=== PATIENT | male | born 1955 | race African-American/Black ===

== ENCOUNTER → 2020-11-18 13:28 | Outpatient (BNVA) | payer MEDICARE, SELFPAY | PROVIDERS: PCP Internal Medicine; Visit Provider Urology | DX: Z13.89 Encounter for screening for other disorder (principal) | CPT/HCPCS: Q3014 ==

== ENCOUNTER → 2021-05-11 14:05 | Outpatient (BNVA) | payer MEDICARE, SELFPAY | PROVIDERS: PCP Internal Medicine; Visit Provider Urology | CPT/HCPCS: Q3014 ==

== ENCOUNTER 2021-08-02 10:49 | Outpatient (REF) | payer MEDICARE, SELFPAY ==
[2021-08-02 14:48] LABS: Prostate Specific Antigen 0.06 ng/mL (<0.05-4.0)
== END 2021-08-02 10:50 | disposition home or self-care (01) ==
LOC: HO.10HDL 10:49
PROVIDERS: Visit Provider Urology
DX: C61 Malignant neoplasm of prostate (principal); N40.1 Benign prostatic hyperplasia with lower urinary tract symptoms; R32 Unspecified urinary incontinence; N13.8 Other obstructive and reflux uropathy; N30.41 Irradiation cystitis with hematuria; R31.0 Gross hematuria
CPT/HCPCS: 36415; 52000; 84153; 99212

== ENCOUNTER → 2022-09-07 13:35 | Outpatient (BNVA) | payer MEDICARE, SELFPAY | PROVIDERS: Visit Provider Urology | DX: N30.40 Irradiation cystitis without hematuria (principal); N52.9 Male erectile dysfunction, unspecified; C61 Malignant neoplasm of prostate; R39.15 Urgency of urination | CPT/HCPCS: 99212 ==

== ENCOUNTER → 2022-11-07 12:52 | Outpatient (BNVA) | payer MEDICARE, SELFPAY | PROVIDERS: PCP Internal Medicine; Visit Provider Urology | DX: C61 Malignant neoplasm of prostate (principal); R97.21 Rising PSA following treatment for malignant neoplasm of prostate | CPT/HCPCS: Q3014 ==

== ENCOUNTER 2023-05-10 14:58 | Outpatient (AMB) | payer MEDICARE, SELFPAY ==
--- NOTE | 2023-05-10 15:00 | MHC.OFFVIS ---
Intake Intake Visit Reasons: 6M PSA(psa?) Intake Note: Patient is present for Follow Up PSA Urology Med: Oxybutynin, Pentoxifylline, Sildenafil Antibiotic Allergy: None Blood Thinner: None Pharmacy: [facility] Allergies No Known Allergies Allergy (Verified 05/10/23 15:02) Medication List - Last Reconciled 05/10/23 by Seth Merritt MD albuterol sulfate 90 mcg/actuation (Ventolin HFA) 2 puffs inhalation Q6H PRN amlodipine 10 mg PO DAILY calcitriol 0.25 mcg PO Q OTHER DAY fluticasone furoate-vilanterol 100-25 mcg/dose ea inhalation fsmxaxozxay-cwwnsnvux-svinpopf 100-62.5-25 mcg ea inhalation ipenqohttlw-ekifyfncy-ghuhmyzp 200-62.5-25 mcg (Trelegy Ellipta) 1 ea PO DAILY gabapentin 300 mg PO BEDTIME 90 days hydrochlorothiazide 12.5 mg PO DAILY ipratropium-albuterol 20-100 mcg/actuation 1 puff PO QID PRN losartan 100 mg PO DAILY losartan 50 mg PO DAILY nicotine 0 inhalations inhalation oxybutynin chloride 5 mg PO BEDTIME PRN 30 days pentoxifylline ER 400 mg PO BID 90 days sildenafil 100 mg PO DAILY PRN 30 days vitamin E 670 mg PO DAILY 90 days HPI HPI Comments History of Present Illness Details Favian is a very pleasant male. He is a patient of Dr. Wilburn. He seen for the following urologic conditions - prostate cancer - radiation cystitis - with hematuria - erectile dysfunction Nighttime episodes of leakage Trial Advil p.m. Daytime episodes of hematuria Trial TXA Daytime leakage Trial Dribblestop. Erectile dysfunction Able to obtain but not maintain erection Failed daily tadalafil Does have some partial response to Viagra Prostate cancer initial low-grade 2010 RALP , recurrence 2016 with radiation Prostate cancer was diagnosed [address] Venegas. Diagnosis was reached by needle biopsy, for elevated PSA. The Dimitris grade is 3+3 = 6. TNM Classification of Malignant Tumours (TNM) T1c. The D'Maryann (NCCN) risk category is Low Risk (PSA< 10, Gl < 7, T1c). Initial therapy included Primary treatment 2009 , Prostatectomy (RRP/Robotic) with [facility] - Gl 3+4, N0, M0 , Additional treatment, Observation , Additional treatment, External Beam Radiation 2016. Recent labs included a PSA (prostate-specific antigen) 14 0.2, 2014 0.3, 2015 0.4, 2016 0.5, 05/23 0.4, 11/24 0.3, 03/24 0.4, 06/24 0.4, 12/23 0.1, 04/24 < 0.1, 08/25 < 0.1 T 690, 10/27 <0.1, 04/26 <0.1, 08/28 0.2, 05/29 0.2 Recent imaging included 11/23 , a CT (computed tomography) scan, with no evidence of metastasis Associated conditions erectile dysfunction Yes Painful ejaculation responds to NSAIDs hematuria No hot flashes No incontinence Yes Stress incontinence with cough, laugh, sneeze, requires pad protection 11/24 - discussed sling Radiation cystitis Hematuria July 202107/27 Cystoscopy July 2021 radiation cystitis Imaging 08/27 CT cystitis [facility] Medical History COPD (chronic obstructive pulmonary disease) Other chronic pain Painful ejaculation Pelvic pain Prostate cancer Rising PSA following treatment for malignant neoplasm of prostate Surgical History History of prostatectomy Social History Household Members: None Review of Systems Const Denies chills and Denies fever(s) Card Reports no additional complaints and Denies syncope Resp Denies cough GI Denies abdominal pain and Denies heartburn Reports as per HPI and Denies change in libido Neuro Denies syncope Psych Denies change in libido Endo Denies change in libido Physical Exam Const General: cooperative, healthy appearing, comfortable and no acute distress Orientation/consciousness: patient oriented x3 HEENT Face and sinus: Yes normal facial exam Mouth: moist mucous membranes Neck Neck: Yes normal visual inspection, Yes full ROM and Yes trachea midline Chest Chest palpation & inspection: normal inspection of the chest Resp Effort & Inspection: normal respiratory effort, able to speak in complete sentences and no respiratory distress GI Inspection: Yes normal to inspection Back/Spine/Pelvis Cervical Spine: normal cervical lordosis Thoracic/Lumbar Spine: thoracic and lumbar spine normal to inspection Skin General skin exam: no rashes or lesions noted Neuro General: patient oriented x3, gait normal, tone normal and moves all extremities Extrem General: Yes normal to inspection and Yes capillary refill normal Assessment & Plan Assessment & Plan (1) Rising PSA following treatment for malignant neoplasm of prostate: Code(s): R97.21 - Rising PSA following treatment for malignant neoplasm of prostate (2) Radiation cystitis: Code(s): N30.40 - 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 (3) Urinary urgency: Code(s): R39.15 - Urgency of urination (4) Prostate cancer: Comment: Prostatectomy 2013, external beam radiation 2019 Code(s): C61 - Malignant neoplasm of prostate Plan Six month follow-up PSA Orders: Orders Prostate Specific Antigen 6 Months C61 - Malignant neoplasm of prostate Medications: New tranexamic acid Use for 2-3 days when have episodes of hematuria 650 mg PO BID 5 days 10 tabs 0RF N30.01 - Acute cystitis with hematuria, N30.40 - 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 Patient Instructions: Imaging studies, laboratory and physical exam results were discussed and reviewed in detail. No major barriers to patient understanding were identified. An opportunity to ask questions regarding the treatment plan was provided. All questions were answered. The patient expressed understanding and agreement with the above treatment plan. The patient is aware they should contact our office by phone for worsening of their current condition or the appearance of new urologic symptoms. Compliance is encouraged with any medications and followup testing that is ordered. It is a privilege to participate in the urologic care of your patient. If you have any questions or concerns regarding treatment for the above conditions, or other urologic issues, please do not hesitate to contact me. The office telephone contact is [phone]. This note is constructed using voice recognition software. While every effort has been made to ensure accuracy websphere commerce architect errors may have been included. Yours sincerely, Dr Seth Merritt MD, [facility] - Urology Providers of Expert, Compassionate Care for the Genitourinary System Coding Level of Care Code Est Pt Level 4 (51407) Diagnoses Rising PSA following treatment for malignant neoplasm of prostate R97.21 Radiation cystitis N30.40 Urinary urgency R39.15 Prostate cancer C61
== END 2023-05-10 15:24 | disposition home or self-care (01) ==
LOC: HO.HUSH 14:58
PROVIDERS: PCP Internal Medicine; Visit Provider Urology
DX: R97.21 Rising PSA following treatment for malignant neoplasm of prostate (principal); Z85.46 Personal history of malignant neoplasm of prostate; N30.40 Irradiation cystitis without hematuria; R39.15 Urgency of urination
CPT/HCPCS: 99214

== ENCOUNTER → 2023-05-10 14:58 | Outpatient (BNVA) | payer MEDICARE, SELFPAY | PROVIDERS: PCP Internal Medicine; Visit Provider Urology | DX: R97.21 Rising PSA following treatment for malignant neoplasm of prostate (principal); R39.15 Urgency of urination; C61 Malignant neoplasm of prostate; N30.40 Irradiation cystitis without hematuria | CPT/HCPCS: 99212 ==

== ENCOUNTER 2023-09-20 14:40 | Outpatient (AMB) | payer MEDICARE, SELFPAY ==
--- NOTE | 2023-09-20 15:05 | A.OFFVIS_ITS ---
Intake Intake Visit Reasons: 6m/PSA Intake Note: Patient is Present for Follow Up PVR Urology Medication: Oxybutynin, Sildenafil Antibiotic Allergies: None Blood Thinners: None PVR: 0 Allergies No Known Allergies Allergy (Verified 05/10/23 15:02) HPI HPI Comments History of Present Illness Details Favian is a very pleasant male. He is a patient of Dr. Wilburn. He seen for the following urologic conditions - prostate cancer - radiation cystitis - with hematuria - erectile dysfunction Occasional episodes of hematuria No time episode nocturia Previous discussion regarding dribblestop Has stress incontinence Retry combination daily tadalafil and pentoxifylline Three month follow-up Erectile dysfunction Able to obtain but not maintain erection Failed daily tadalafil Does have some partial response to Viagra Prostate cancer initial low-grade 2009 RALP , recurrence 2016 with radiation Prostate cancer was diagnosed [address] Venegas. Diagnosis was reached by needle biopsy, for elevated PSA. The [place] grade is 3+3 = 6. TNM Classification of Malignant Tumours (TNM) T1c. The D'Maryann (NCCN) risk category is Low Risk (PSA< 10, Gl < 7, T1c). Initial therapy included Primary treatment 2009 , Prostatectomy (RRP/Robotic) with [facility] - Gl 3+4, N0, M0 , Additional treatment, Observation , Additional treatment, External Beam Radiation 2016 Recent labs included a PSA (prostate-specific antigen) 14 0.2, 2014 0.3, 2015 0.4, 2016 0.5, 05/23 0.4, 11/24 0.3, 03/24 0.4, 06/24 0.4, 12/23 0.1, 04/24 < 0.1, 08/25 < 0.1 T 690, 10/27 <0.1, 04/26 <0.1, 08/28 0.2, 05/29 0.2 Recent imaging included 11/23 , a CT (computed tomography) scan, with no evidence of metastasis Associated conditions Stress incontinence with cough, laugh, sneeze, requires pad protection 11/24 - discussed sling Radiation cystitis Hematuria July 202107/27 Cystoscopy July 2021 radiation cystitis Imaging 08/27 CT cystitis [facility] Medical History COPD (chronic obstructive pulmonary disease) Other chronic pain Pelvic pain Painful ejaculation Rising PSA following treatment for malignant neoplasm of prostate Prostate cancer Surgical History History of prostatectomy Social History Household Members: None Review of Systems Const Denies chills and Denies fever(s) Card Reports no additional complaints and Denies syncope Resp Denies cough GI Denies abdominal pain and Denies heartburn Reports as per HPI and Denies change in libido Neuro Denies syncope Psych Denies change in libido Endo Denies change in libido Physical Exam Const General: cooperative, healthy appearing, comfortable and no acute distress Orientation/consciousness: patient oriented x3 HEENT Face and sinus: Yes normal facial exam Mouth: moist mucous membranes Neck Neck: Yes normal visual inspection, Yes full ROM and Yes trachea midline Chest Chest palpation & inspection: normal inspection of the chest Resp Effort & Inspection: normal respiratory effort, able to speak in complete sentences and no respiratory distress GI Inspection: Yes normal to inspection Back/Spine/Pelvis Cervical Spine: normal cervical lordosis Thoracic/Lumbar Spine: thoracic and lumbar spine normal to inspection Skin General skin exam: no rashes or lesions noted Neuro General: patient oriented x3, gait normal, tone normal and moves all extremities Extrem General: Yes normal to inspection and Yes capillary refill normal Office Procedures Post Void Residual Post Residual Void Post Void Residual (PVR): 0 [id number] Void Residual by ultrasound Assessment & Plan Assessment & Plan (1) Radiation cystitis: Code(s): N30.40 - 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 (2) Urinary urgency: Code(s): R39.15 - Urgency of urination (3) Erectile dysfunction: Code(s): N52.9 - Male erectile dysfunction, unspecified (4) Prostate cancer: Comment: Prostatectomy 2013, external beam radiation 2019 Code(s): C61 - Malignant neoplasm of prostate Plan Retry combination tadalafil pentoxifylline for bladder stabilization Three month follow-up Orders: Orders AMB Post Void Residual by ultrasound Today R39.15 - Urgency of urination Prostate Specific Antigen 3 Months C61 - Malignant neoplasm of prostate Medications: New tadalafil 5 mg PO DAILY 90 tabs 0RF sexual activity 90 days N52.01 - Erectile dysfunction due to arterial insufficiency pentoxifylline ER administer with meals 400 mg PO BID 180 tabs 1RF 90 days N48.6 - Induration penis plastica, N52.9 - Male erectile dysfunction, unspecified Patient Instructions: Imaging studies, laboratory and physical exam results were discussed and reviewed in detail. No major barriers to patient understanding were identified. An opportunity to ask questions regarding the treatment plan was provided. All questions were answered. The patient expressed understanding and agreement with the above treatment plan. The patient is aware they should contact our office by phone for worsening of their current condition or the appearance of new urologic symptoms. Compliance is encouraged with any medications and followup testing that is ordered. It is a privilege to participate in the urologic care of your patient. If you have any questions or concerns regarding treatment for the above conditions, or other urologic issues, please do not hesitate to contact me. The office telephone contact is [phone]. This note is constructed using voice recognition software. While every effort has been made to ensure accuracy upsetter setter up errors may have been included. Yours sincerely, Dr Seth Merritt MD, [facility] - Urology Providers of Expert, Compassionate Care for the Genitourinary System Coding Level of Care Code Est Pt Level 4 (68475) Diagnoses Radiation cystitis N30.40 Urinary urgency R39.15 Erectile dysfunction N52.9 Prostate cancer C61 CPT Codes Post Residual Void - PVR CPT Code: 70725-Ccvf Void Residual by ultrasound ([id number])
== END 2023-09-20 15:33 | disposition home or self-care (01) ==
PROVIDERS: PCP Internal Medicine; Visit Provider Urology
DX: N30.40 Irradiation cystitis without hematuria (principal); R39.15 Urgency of urination; N52.9 Male erectile dysfunction, unspecified; C61 Malignant neoplasm of prostate
CPT/HCPCS: 99214

== ENCOUNTER → 2023-09-20 14:40 | Outpatient (BNVA) | payer MEDICARE, SELFPAY | PROVIDERS: PCP Internal Medicine; Visit Provider Urology | DX: N30.40 Irradiation cystitis without hematuria (principal); R39.15 Urgency of urination; N52.9 Male erectile dysfunction, unspecified; C61 Malignant neoplasm of prostate | CPT/HCPCS: 51798; 99212 ==

== ENCOUNTER 2024-02-06 14:34 | Outpatient (REF) | payer MEDICARE, SELFPAY | END 2024-02-06 14:35 | disposition home or self-care (01) | LOC: HO.LAB 14:34 | PROVIDERS: PCP Internal Medicine; Visit Provider Urology | DX: R31.0 Gross hematuria (principal); N39.0 Urinary tract infection, site not specified | CPT/HCPCS: 81003; 87086; 99212 ==

== ENCOUNTER 2024-02-06 14:34 | Outpatient (AMB) | payer MEDICARE, SELFPAY ==
--- NOTE | 2024-02-06 14:41 | A.OFFVIS_ITS ---
Intake Visit Reasons: recurrent hematuria Intake Note: Patient is present for Recurrent Hematuria Urology Med: Sildenafil, Tadalafil, Oxybutynin Patient states that he has been urinating blood and blood clots Allergies No Known Allergies Allergy (Verified 02/06/24 14:48) HPI Comments Details: Favian is a very pleasant male. He is a patient of Dr. Wilburn. He seen for the following urologic conditions - prostate cancer - radiation cystitis - with hematuria - erectile dysfunction Accompanied by his daughter Has had significant gross hematuria Was initially treated with tranexamic acid It appears that he has a UTI in office today Antibiotics given He was also on Eliquis while at rehab This was stopped Daughter thinks that urine is starting to settle down now he is 5 days out from Eliquis Follow-up with nursing next week as may need irrigation and antibiotics changed based on culture Erectile dysfunction Able to obtain but not maintain erection Failed daily tadalafil Does have some partial response to Viagra Prostate cancer initial low-grade 2009 RALP , recurrence 2016 with radiation Prostate cancer was diagnosed [address] Venegas. Diagnosis was reached by needle biopsy, for elevated PSA. The Dimitris grade is 3+3 = 6. TNM Classification of Malignant Tumours (TNM) T1c. The D'Maryann (NCCN) risk category is Low Risk (PSA< 10, Gl < 7, T1c). Initial therapy included Primary treatment 2009 , Prostatectomy (RRP/Robotic) with [facility] - Gl 3+4, N0, M0 , Additional treatment, Observation , Additional treatment, External Beam Radiation 2016 Recent labs included a PSA (prostate-specific antigen) 14 0.2, 2014 0.3, 2015 0.4, 2016 0.5, 05/23 0.4, 11/24 0.3, 03/24 0.4, 06/24 0.4, 12/23 0.1, 04/24 < 0.1, 08/25 < 0.1 T 690, 10/27 <0.1, 04/26 <0.1, 08/28 0.2, 05/29 0.2 Recent imaging included 11/23 , a CT (computed tomography) scan, with no evidence of metastasis Associated conditions Stress incontinence with cough, laugh, sneeze, requires pad protection 11/24 - discussed sling Radiation cystitis Hematuria July 202107/27 Cystoscopy July 2021 radiation cystitis Imaging 08/27 [facility] cystitis [facility] Medical History COPD (chronic obstructive pulmonary disease) Other chronic pain Pelvic pain Painful ejaculation Rising PSA following treatment for malignant neoplasm of prostate Prostate cancer Surgical History History of prostatectomy Social History Household Members: None Review of Systems Const Denies chills and Denies fever(s) Card Reports no additional complaints and Denies syncope Resp Denies cough GI Denies abdominal pain and Denies heartburn Reports as per HPI and Denies change in libido Neuro Denies syncope Psych Denies change in libido Endo Denies change in libido Physical Exam Const General: cooperative, healthy appearing, comfortable and no acute distress Orientation/consciousness: patient oriented x3 HEENT Face and sinus: Yes normal facial exam Mouth: moist mucous membranes Neck Neck: Yes normal visual inspection, Yes full ROM and Yes trachea midline Chest Chest palpation & inspection: normal inspection of the chest Resp Effort & Inspection: normal respiratory effort, able to speak in complete sentences and no respiratory distress GI Inspection: Yes normal to inspection Back/Spine/Pelvis Cervical Spine: normal cervical lordosis Thoracic/Lumbar Spine: thoracic and lumbar spine normal to inspection Skin General skin exam: no rashes or lesions noted Neuro General: patient oriented x3, gait normal, tone normal and moves all extremities Extrem General: Yes normal to inspection and Yes capillary refill normal Results AMB Urinalysis, Automated UA Leukoctes 500 Byron/uL Last Edit by BONITA Mendoza on 02/06/24 15:00 UA Nitrite Positive Last Edit by BONITA Mendoza on 02/06/24 15:00 UA Urobilinogen 4 mg/dL Last Edit by BONITA Mendoza on 02/06/24 15:00 UA Protein 300 mg/dL Last Edit by BONITA Mendoza on 02/06/24 15:00 UA pH 5.0 Last Edit by BONITA Mendoza on 02/06/24 15:00 UA Blood 200 Noel/uL Last Edit by BONITA Mendoza on 02/06/24 15:00 UA Specific [place] 1.015 Last Edit by Carmen Stovall, RMA on 02/06/24 15: 00 UA Ketone Positive Last Edit by Carmen Stovall, RMA on 02/06/24 15:00 UA Bilirubin 1 mg/dL Last Edit by Carmen Stovall, RMA on 02/06/24 15:00 UA Glucose 100 mg/dL Last Edit by Carmen Stovall, RMA on 02/06/24 15:00 Results Reviewed Results Reviewed: Laboratory Last Values Urine pH (Auto) 5.0 02/06/24 14:54 Specific [place] (Auto) 1.015 02/06/24 14:54 Urine Protein (Auto) 300 mg/dL 02/06/24 14:54 Glucose (UA)(Auto) 100 mg/dL 02/06/24 14:54 Urine Ketones (Auto) Positive 02/06/24 14:54 Urine Blood (Auto) 200 Noel/uL 02/06/24 14:54 Urine Nitrite (Auto) Positive 02/06/24 14:54 Urine Bilirubin (Auto) 1 mg/dL 02/06/24 14:54 Urine Urobilinogen (Auto) 4 mg/dL 02/06/24 14:54 Leukocyte Esterase (Auto) 500 Byron/uL 02/06/24 14:54 Assessment & Plan Assessment & Plan (1) Radiation cystitis: Code(s): N30.40 - 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 Category: Medical (2) Hemorrhagic cystitis: Code(s): N30.91 - Cystitis, unspecified with hematuria Category: Medical (3) Complicated urinary tract infection: Code(s): N39.0 - Urinary tract infection, site not specified Category: Medical Plan Antibiotics Follow-up next week with nursing Orders: Orders AMB Urinalysis Automated Today Z13.9 - Encounter for screening, unspecified Urine Culture Today R31.0 - Gross hematuria Medications: New levofloxacin 500 mg PO DAILY 7 tabs 0RF 7 days N39.0 - Urinary tract infection, site not specified, R31.0 - Gross hematuria Patient Instructions: Imaging studies, laboratory and physical exam results were discussed and reviewed in detail. No major barriers to patient understanding were identified. An opportunity to ask questions regarding the treatment plan was provided. All questions were answered. The patient expressed understanding and agreement with the above treatment plan. The patient is aware they should contact our office by phone for worsening of their current condition or the appearance of new urologic symptoms. Compliance is encouraged with any medications and followup testing that is ordered. It is a privilege to participate in the urologic care of your patient. If you have any questions or concerns regarding treatment for the above conditions, or other urologic issues, please do not hesitate to contact me. The office telephone contact is [phone]. This note is constructed using voice recognition software. While every effort has been made to ensure accuracy fence setter errors may have been included. Yours sincerely, Dr Seth Merritt MD, [facility] - Urology Providers of Expert, Compassionate Care for the Genitourinary System Coding Level of Care Code Est Pt Level 4 (08943) Diagnoses Radiation cystitis N30.40 Hemorrhagic cystitis N30.91 Complicated urinary tract infection N39.0
== END 2024-02-06 15:20 | disposition home or self-care (01) ==
PROVIDERS: PCP Internal Medicine; Visit Provider Urology
DX: N39.0 Urinary tract infection, site not specified (principal); N30.40 Irradiation cystitis without hematuria; N30.91 Cystitis, unspecified with hematuria; Z13.9 Encounter for screening, unspecified
CPT/HCPCS: 99214

== ENCOUNTER 2024-03-27 13:01 | Outpatient (AMB) | payer MEDICARE, SELFPAY ==
--- NOTE | 2024-03-27 13:04 | A.OFFVIS_ITS ---
Intake Visit Reasons: follow up hematuria Intake Note: Pt presents to the office today for a follow up for hematuria. Urology meds: Tadalafil, sildenafil Blood thinners:None Allergies No Known Allergies Allergy (Verified 03/27/24 13:04) HPI Comments Details: Favian is a very pleasant male. He is a patient of Dr. Wilburn. He seen for the following urologic conditions - prostate cancer - radiation cystitis - with hematuria - erectile dysfunction Continued with intermittent hematuria May benefit from cystoscopy with low power GreenLight laser Was initially treated with tranexamic acid It appears that he has a UTI in office today Antibiotics given Erectile dysfunction Able to obtain but not maintain erection Failed daily tadalafil Does have some partial response to Viagra Prostate cancer initial low-grade 2009 RALP , recurrence 2016 with radiation Prostate cancer was diagnosed [address] Venegas. Diagnosis was reached by needle biopsy, for elevated PSA. The [place] grade is 3+3 = 6. TNM Classification of Malignant Tumours (TNM) T1c. The D'Maryann (NCCN) risk category is Low Risk (PSA< 10, Gl < 7, T1c). Initial therapy included Primary treatment 2009 , Prostatectomy (RRP/Robotic) with [facility] - Gl 3+4, N0, M0 , Additional treatment, Observation , Additional treatment, External Beam Radiation 2016 Recent labs included a PSA (prostate-specific antigen) 0.2, 2014 0.3, 2015 0.4, 2016 0.5, 05/23 0.4, 11/24 0.3, 03/24 0.4, 06/24 0.4, 12/23 0.1, 04/24 < 0.1, 08/25 < 0.1 T 690, 10/27 <0.1, 04/26 <0.1, 08/28 0.2, 05/29 0.2, 03/30 0.2 Recent imaging included 11/23 , a CT (computed tomography) scan, with no evidence of metastasis Associated conditions Stress incontinence with cough, laugh, sneeze, requires pad protection 11/24 - discussed sling Radiation cystitis Hematuria July 202107/27 Cystoscopy July 2021 radiation cystitis Imaging 08/27 CT cystitis [facility] Medical History COPD (chronic obstructive pulmonary disease) Other chronic pain Pelvic pain Painful ejaculation Rising PSA following treatment for malignant neoplasm of prostate Prostate cancer Surgical History History of prostatectomy Social History Household Members: None Review of Systems Const Denies chills and Denies fever(s) Card Reports no additional complaints and Denies syncope Resp Denies cough GI Denies abdominal pain and Denies heartburn Reports as per HPI and Denies change in libido Neuro Denies syncope Psych Denies change in libido Endo Denies change in libido Physical Exam Const General: cooperative, healthy appearing, comfortable and no acute distress Orientation/consciousness: patient oriented x3 HEENT Face and sinus: Yes normal facial exam Mouth: moist mucous membranes Neck Neck: Yes normal visual inspection, Yes full ROM and Yes trachea midline Chest Chest palpation & inspection: normal inspection of the chest Resp Effort & Inspection: normal respiratory effort, able to speak in complete sen tences and no respiratory distress GI Inspection: Yes normal to inspection Back/Spine/Pelvis Cervical Spine: normal cervical lordosis Thoracic/Lumbar Spine: thoracic and lumbar spine normal to inspection Skin General skin exam: no rashes or lesions noted Neuro General: patient oriented x3, gait normal, tone normal and moves all extremities Extrem General: Yes normal to inspection and Yes capillary refill normal Results AMB Urinalysis, Automated UA Leukoctes 0 Byron/uL Last Edit by Elizabeth To CMA on 03/27/24 13:24 UA Nitrite Negative Last Edit by Elizabeth To CMA on 03/27/24 13:24 UA Urobilinogen 0.2 mg/dL Last Edit by Elizabeth To CMA on 03/27/24 13:24 UA Protein 300 mg/dL Last Edit by Elizabeth To CMA on 03/27/24 13:24 UA pH 5.0 Last Edit by Elizabeth To CMA on 03/27/24 13:24 UA Blood 0 Noel/uL Last Edit by Elizabeth To CMA on 03/27/24 13:24 UA Specific [place] 1.020 Last Edit by Elizabeth To CMA on 03/27/24 13:24 UA Ketone Negative Last Edit by Elizabeth To CMA on 03/27/24 13:24 UA Bilirubin 0 mg/dL Last Edit by Elizabeth To CMA on 03/27/24 13:24 UA Glucose 0 mg/dL Last Edit by Elizabeth To CMA on 03/27/24 13:24 Results Reviewed Results Reviewed: Laboratory Last Values Urine pH (Auto) 5.0 03/27/24 13:23 Specific [place] (Auto) 1.020 03/27/24 13:23 Urine Protein (Auto) 300 mg/dL 03/27/24 13:23 Glucose (UA)(Auto) 0 mg/dL 03/27/24 13:23 Urine Ketones (Auto) Negative 03/27/24 13:23 Urine Blood (Auto) 0 Noel/uL 03/27/24 13:23 Urine Nitrite (Auto) Negative 03/27/24 13:23 Urine Bilirubin (Auto) 0 mg/dL 03/27/24 13:23 Urine Urobilinogen (Auto) 0.2 mg/dL 03/27/24 13:23 Leukocyte Esterase (Auto) 0 Byron/uL 03/27/24 13:23 Assessment & Plan Assessment & Plan (1) Hemorrhagic cystitis: Code(s): N30.91 - Cystitis, unspecified with hematuria Category: Medical (2) Radiation cystitis: Code(s): N30.40 - 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 Category: Medical Plan Risks, benefits and alternatives to therapy were discussed. These include but are not limited to infection, bleeding, damage to local organs and tissues, need for further interventions. Anesthetic risks regarding cardiac arrhythmia, blood clots, and potential mortality were discussed. The patient understands the typical recovery time and the outpatient nature of the procedure. After consideration of these risks the patient gives full informed consent and they wish to move ahead with the procedure. GreenLight laser to bladder Orders: Orders AMB Urinalysis Automated Today Z13.9 - Encounter for screening, unspecified Patient Instructions: Imaging studies, laboratory and physical exam results were discussed and reviewed in detail. No major barriers to patient understanding were identified. An opportunity to ask questions regarding the treatment plan was provided. All questions were answered. The patient expressed understanding and agreement with the above treatment plan. The patient is aware they should contact our office by phone for worsening of their current condition or the appearance of new urologic symptoms. Compliance is encouraged with any medications and followup testing that is ordered. It is a privilege to participate in the urologic care of your patient. If you have any questions or concerns regarding treatment for the above conditions, or other urologic issues, please do not hesitate to contact me. The office telephone contact is [phone]. This note is constructed using voice recognition software. While every effort has been made to ensure accuracy slat basket maker errors may have been included. Yours sincerely, Dr Seth Merritt MD, [facility] - Urology Providers of Expert, Compassionate Care for the Genitourinary System Coding Level of Care Code Est Pt Level 4 (71058) Diagnoses Hemorrhagic cystitis N30.91 Radiation cystitis N30.40
== END 2024-03-27 13:48 | disposition home or self-care (01) ==
PROVIDERS: PCP Internal Medicine; Visit Provider Urology
DX: N30.91 Cystitis, unspecified with hematuria (principal); N30.40 Irradiation cystitis without hematuria; Z13.9 Encounter for screening, unspecified
CPT/HCPCS: 99214

== ENCOUNTER → 2024-03-27 13:01 | Outpatient (BNVA) | payer MEDICARE, SELFPAY | PROVIDERS: PCP Internal Medicine; Visit Provider Urology | DX: N30.91 Cystitis, unspecified with hematuria (principal); N30.40 Irradiation cystitis without hematuria | CPT/HCPCS: 81003; 99212 ==

== ENCOUNTER 2024-04-23 13:15 | Outpatient (AMB) | payer MEDICARE, SELFPAY ==
--- NOTE | 2024-04-23 13:46 | MHC.OFFVIS ---
Intake Visit Reasons: Discuss procedure Weigher Packing Required: No Allergies bee pollen [bee stings] Allergy (Verified 06/09/24 13:49) Anaphylaxis levofloxacin [From Levaquin] Allergy (Verified 06/09/24 13:49) Anaphylaxis HPI Comments Details: Favian is a very pleasant male. He is a patient of Dr. Wilburn. He seen for the following urologic conditions - prostate cancer - radiation cystitis - with hematuria - erectile dysfunction Telemedicine Evaluation 15 min Consultation [employer] Greg Video attempted Plan for cystoscopy with GreenLight laser for cystitis radiation damage Erectile dysfunction Able to obtain but not maintain erection Failed daily tadalafil Does have some partial response to Viagra Prostate cancer initial low-grade 2009 RALP , recurrence 2016 with radiation Prostate cancer was diagnosed [address] Venegas. Diagnosis was reached by needle biopsy, for elevated PSA. The [place] grade is 3+3 = 6. TNM Classification of Malignant Tumours (TNM) T1c. The D'Maryann (NCCN) risk category is Low Risk (PSA< 10, Gl < 7, T1c). Initial therapy included Primary treatment 2009 , Prostatectomy (RRP/Robotic) with [facility] - Gl 3+4, N0, M0 , Additional treatment, Observation , Additional treatment, External Beam Radiation 2016 Recent labs included a PSA (prostate-specific antigen) 14 0.2, 2014 0.3, 2015 0.4, 2016 0.5, 05/23 0.4, 11/24 0.3, 03/24 0.4, 06/24 0.4, 12/23 0.1, 04/24 < 0.1, 08/25 < 0.1 T 690, 10/27 <0.1, 04/26 <0.1, 08/28 0.2, 05/29 0.2, 03/30 0.2 Recent imaging included 11/23 , a CT (computed tomography) scan, with no evidence of metastasis Associated conditions Stress incontinence with cough, laugh, sneeze, requires pad protection 11/24 - discussed sling Radiation cystitis Hematuria July 202107/27 Cystoscopy July 2021 radiation cystitis Imaging 08/27 [facility] cystitis [facility] Medical History Thoracic aortic aneurysm Wheelchair dependent Oxygen dependent Anemia Bradycardia Hx of radiation therapy Acute and chronic respiratory failure DVT (deep venous thrombosis) Hyperlipidemia Hyperkalemia Sleep apnea CKD (chronic kidney disease) Oxygen dependent HTN (hypertension) COPD (chronic obstructive pulmonary disease) Other chronic pain Pelvic pain Painful ejaculation Rising PSA following treatment for malignant neoplasm of prostate Prostate cancer Surgical History History of prostatectomy Social History Household Members: None Patient Tobacco Use Status: Current everyday Tobacco user Cigarette Packs Per Day: 1 Cigarettes Per Day: 20.0 Review of Systems Const All systems reviewed & are unremarkable except as noted in HPI and below Reports no additional complaints Resp Reports no additional complaints GI Reports no additional complaints Reports as per HPI Musc Reports no additional complaints Physical Exam Telemedicine evaluation Appropriate responses Regular breathing rate and rhythm HEENT Head: Yes normal to inspection Ears: hearing grossly normal bilaterally Eyes General: appearance normal, both eyes and all related structures Neck Neck: Yes normal visual inspection Chest Chest palpation & inspection: normal inspection of the chest Resp Effort & Inspection: normal respiratory effort and able to speak in complete sentences Telehealth Telehealth Telehealth Platform: [employer] Location of provider rendering services: practice address Location of patient: address on file Patient Identification confirmed using: Name, : Yes Telehealth method: video Patient verbally consented to treatment: Yes Patient verbally consented to billing insurance company: Yes Patient informed of any privacy concerns related to visit: Yes Minutes spent on Phone/Video with Pt.: 15 Assessment & Plan Assessment & Plan (1) Hemorrhagic cystitis: Code(s): N30.91 - Cystitis, unspecified with hematuria Category: Medical (2) Radiation cystitis: Code(s): N30.40 - 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 Category: Medical (3) Erectile dysfunction: Code(s): N52.9 - Male erectile dysfunction, unspecified Category: Medical Plan planned laser of bladder Medications: New ferrous gluconate Take 2 tablets in the evening on Saturday, Saturday, Saturday. Take with 1/2 glass of orange juice. 480 mg (2 x 240 mg (27 mg iron)) PO BEDTIME 180 tabs 0RF 90 days R31.0 - Gross hematuria Patient Instructions: Imaging studies, laboratory and physical exam results were discussed and reviewed in detail. No major barriers to patient understanding were identified. An opportunity to ask questions regarding the treatment plan was provided. All questions were answered. The patient expressed understanding and agreement with the above treatment plan. The patient is aware they should contact our office by phone for worsening of their current condition or the appearance of new urologic symptoms. Compliance is encouraged with any medications and followup testing that is ordered. It is a privilege to participate in the urologic care of your patient. If you have any questions or concerns regarding treatment for the above conditions, or other urologic issues, please do not hesitate to contact me. The office telephone contact is [phone]. This note is constructed using voice recognition software. While every effort has been made to ensure accuracy certified medical transcriptionist errors may have been included. Yours sincerely, Dr Seth Merritt MD, [facility] - Urology Providers of Expert, Compassionate Care for the Genitourinary System Coding Level of Care Code Tele Est Pt Level 3 (82152) Diagnoses Hemorrhagic cystitis N30.91 Radiation cystitis N30.40 Erectile dysfunction N52.9
== END 2024-04-23 15:48 | disposition home or self-care (01) ==
LOC: HO.HUSH 13:15
PROVIDERS: PCP Internal Medicine; Visit Provider Urology
DX: N30.91 Cystitis, unspecified with hematuria (principal); N30.40 Irradiation cystitis without hematuria; N52.9 Male erectile dysfunction, unspecified
CPT/HCPCS: 99213

== ENCOUNTER → 2024-04-23 13:15 | Outpatient (BNVA) | payer MEDICARE, SELFPAY | PROVIDERS: PCP Internal Medicine; Visit Provider Urology ==

== ENCOUNTER 2024-04-30 14:05 | Outpatient (AMB) | payer MEDICARE, SELFPAY ==
--- NOTE | 2024-04-30 14:13 | MHC.OFFVIS ---
Intake Visit Reasons: recurrent hematuria/lab results Allergies No Known Allergies Allergy (Verified 03/27/24 13:04) Medication List - Last Reconciled 04/30/24 by Seth Merritt MD albuterol sulfate 90 mcg/actuation (Ventolin HFA) 2 puffs inhalation Q6H PRN amlodipine 10 mg PO DAILY ferrous gluconate 480 mg (2 x 240 mg (27 mg iron)) PO BEDTIME 90 days fluticasone furoate-vilanterol 100-25 mcg/dose ea inhalation gtzbjolpcaq-bjfthwvfs-npxspjpo 100-62.5-25 mcg ea inhalation iwdrclqizjx-shxsxujxr-eiglankr 200-62.5-25 mcg (Trelegy Ellipta) 1 ea PO DAILY ipratropium-albuterol 20-100 mcg/actuation 1 puff PO QID PRN nicotine 0 inhalations inhalation pentoxifylline ER 400 mg PO BID 90 days pentoxifylline ER 400 mg PO BID 90 days sildenafil 100 mg PO DAILY PRN 30 days tadalafil 5 mg PO DAILY 90 days tranexamic acid 650 mg PO BID 7 days vitamin E 670 mg PO DAILY 90 days HPI Comments Details: Favian is a very pleasant male. He is a patient of Dr. Wilburn. He seen for the following urologic conditions - prostate cancer - radiation cystitis - with hematuria - erectile dysfunction GreenLight laser procedure is scheduled for 10 days away Refill tranexamic acid Erectile dysfunction Able to obtain but not maintain erection Failed daily tadalafil Does have some partial response to Viagra Prostate cancer initial low-grade 2009 RALP , recurrence 2017 with radiation Prostate cancer was diagnosed [address] Venegas. Diagnosis was reached by needle biopsy, for elevated PSA. The [place] grade is 3+3 = 6. TNM Classification of Malignant Tumours (TNM) T1c. The D'Maryann (NCCN) risk category is Low Risk (PSA< 10, Gl < 7, T1c). Initial therapy included Primary treatment 2009 , Prostatectomy (RRP/Robotic) with [facility] - Gl 3+4, N0, M0 , Additional treatment, Observation , Additional treatment, External Beam Radiation 2016 Recent labs included a PSA (prostate-specific antigen) 0.2, 2014 0.3, 2015 0.4, 2016 0.5, 05/23 0.4, 11/24 0.3, 03/24 0.4, 06/24 0.4, 12/23 0.1, 04/24 < 0.1, 08/25 < 0.1 T 690, 10/27 <0.1, 04/26 <0.1, 08/28 0.2, 05/29 0.2, 03/30 0.2 Recent imaging included 11/23 , a CT (computed tomography) scan, with no evidence of metastasis Associated conditions Stress incontinence with cough, laugh, sneeze, requires pad protection 11/24 - discussed sling Radiation cystitis Hematuria July 202107/27 Cystoscopy July 2021 radiation cystitis Imaging 08/27 CT cystitis [facility] Medical History COPD (chronic obstructive pulmonary disease) Other chronic pain Pelvic pain Painful ejaculation Rising PSA following treatment for malignant neoplasm of prostate Prostate cancer Surgical History History of prostatectomy Social History Household Members: None Review of Systems Const Denies chills and Denies fever(s) Card Reports no additional complaints and Denies syncope Resp Denies cough GI Denies abdominal pain and Denies heartburn Reports as per HPI and Denies change in libido Neuro Denies syncope Psych Denies change in libido Endo Denies change in libido Physical Exam Const General: cooperative, healthy appearing, comfortable and no acute distress Orientation/consciousness: patient oriented x3 HEENT Face and sinus: Yes normal facial exam Mouth: moist mucous membranes Neck Neck: Yes normal visual inspection, Yes full ROM and Yes trachea midline Chest Chest palpation & inspection: normal inspection of the chest Resp Effort & Inspection: normal respiratory effort, able to speak in complete sentences and no respiratory distress GI Inspection: Yes normal to inspection Back/Spine/Pelvis Cervical Spine: normal cervical lordosis Thoracic/Lumbar Spine: thoracic and lumbar spine normal to inspection Skin General skin exam: no rashes or lesions noted Neuro General: patient oriented x3, gait normal, tone normal and moves all extremities Extrem General: Yes normal to inspection and Yes capillary refill normal Assessment & Plan Assessment & Plan (1) Hemorrhagic cystitis: Code(s): N30.91 - Cystitis, unspecified with hematuria Category: Medical (2) Radiation cystitis: Code(s): N30.40 - 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 Category: Medical Plan Risks, benefits and alternatives to therapy were discussed. These include but are not limited to infection, bleeding, damage to local organs and tissues, need for further interventions. Anesthetic risks regarding cardiac arrhythmia, blood clots, and potential mortality were discussed. The patient understands the typical recovery time and the outpatient nature of the procedure. After consideration of these risks the patient gives full informed consent and they wish to move ahead with the procedure. Medications: Changed From tranexamic acid Use for 2-3 days when have episodes of hematuria 650 mg PO BID 5 days 10 tabs 0RF N30.01 - Acute cystitis with hematuria, N30.40 - 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 To tranexamic acid 650 mg PO BID 7 days 14 tabs 0RF N30.01 - Acute cystitis with hematuria, N30.40 - 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 Patient Instructions: Imaging studies, laboratory and physical exam results were discussed and reviewed in detail. No major barriers to patient understanding were identified. An opportunity to ask questions regarding the treatment plan was provided. All questions were answered. The patient expressed understanding and agreement with the above treatment plan. The patient is aware they should contact our office by phone for worsening of their current condition or the appearance of new urologic symptoms. Compliance is encouraged with any medications and followup testing that is ordered. It is a privilege to participate in the urologic care of your patient. If you have any questions or concerns regarding treatment for the above conditions, or other urologic issues, please do not hesitate to contact me. The office telephone contact is [phone]. This note is constructed using voice recognition software. While every effort has been made to ensure accuracy pilot safety inspector errors may have been included. Yours sincerely, Dr Seth Merritt MD, [facility] - Urology Providers of Expert, Compassionate Care for the Genitourinary System Coding Level of Care Code Est Pt Level 3 (42395) Diagnoses Hemorrhagic cystitis N30.91 Radiation cystitis N30.40
== END 2024-04-30 14:40 | disposition home or self-care (01) ==
LOC: HO.HUSH 14:05
PROVIDERS: PCP Internal Medicine; Visit Provider Urology
DX: N30.91 Cystitis, unspecified with hematuria (principal); N30.40 Irradiation cystitis without hematuria
CPT/HCPCS: 99213

== ENCOUNTER → 2024-04-30 14:05 | Outpatient (BNVA) | payer MEDICARE, SELFPAY | PROVIDERS: PCP Internal Medicine; Visit Provider Urology | DX: N30.91 Cystitis, unspecified with hematuria (principal); N30.40 Irradiation cystitis without hematuria | CPT/HCPCS: 99212 ==

== ENCOUNTER 2024-05-11 10:01 | Day surgery (SDC) | payer OTHER, SELFPAY ==
--- NOTE | 2024-05-08 13:15 | HO.ANESPROP2 ---
HPI - Anesthesia Eval Consult details Narrative: 69yo M for cystoscopy with green light laser on Bladder Cardiac optimized. (Follows [facility] for HFpEF/cor pulmonale; APCs; Thoracic aneurysm; Htn/Hld) Per clearance note: euvolemic on exam Cardiology rec's pulmo preop eval. Per Dr Merritt, procedure is urgent and will proceed without pulmo eval. Will documet on his preop notes. O2 dependant, wheelchair bound No OAC currently due to hematuria PMFSH Active Problems Active Problems: All Active Problems Complicated urinary tract infection (Acute) Hemorrhagic cystitis (Acute) Urinary urgency (Acute) Radiation cystitis (Acute) Gross hematuria (Acute) Erectile dysfunction (Acute) Rising PSA following treatment for malignant neoplasm of prostate (Acute) Prostate cancer (Acute) Pelvic pain (Acute) Past Medical History Medical History Thoracic aortic aneurysm Wheelchair dependent Oxygen dependent Anemia Bradycardia Hx of radiation therapy Acute and chronic respiratory failure DVT (deep venous thrombosis) Hyperlipidemia Hyperkalemia Sleep apnea CKD (chronic kidney disease) Oxygen dependent HTN (hypertension) COPD (chronic obstructive pulmonary disease) Other chronic pain Pelvic pain Painful ejaculation Rising PSA following treatment for malignant neoplasm of prostate Prostate cancer Surgical History Surgical History History of prostatectomy Social History Social History Household Members: None Patient Tobacco Use Status: Current everyday Tobacco user Cigarette Packs Per Day: 1 Cigarettes Per Day: 20.0 Meds Allergies Allergy/AdvReac Type Severity Reaction Status Date / Time bee pollen [bee stings] Allergy Anaphylaxis Verified 05/11/24 12:50 levofloxacin [From Levaquin] Allergy Anaphylaxis Verified 05/11/24 12:50 Home Medications ?Medication ?Instructions ?Recorded ?Confirmed ?Last Taken ?Type amlodipine 10 mg tablet 10 mg PO DAILY 11/18/20 04/30/24 Unknown History fluticasone fur. 100 mcg-umeclid ea inhalation 11/18/20 04/30/24 Unknown History 62.5 mcg-vilant 25 mcg inhalat.powder fluticasone furoate 100 ea inhalation 11/18/20 04/30/24 Unknown History mcg-vilanterol 25 mcg/dose inhalation powder ipratropium 20 mcg-albuterol 100 1 puff PO QID PRN wheezing 11/18/20 04/30/24 Unknown History mcg/actuation mist for inhalation nicotine 10 mg inhalation cartridge 0 inh inhalation 11/18/20 04/30/24 Unknown History fluticasone fur. 200 mcg-umeclid 1 ea PO DAILY 08/02/21 04/30/24 Unknown History 62.5 mcg-vilant 25 mcg inhalat.powder (Trelegy Ellipta) albuterol sulfate 90 mcg/actuation 2 puff inhalation Q6H PRN wheezing 11/07/22 04/30/24 Unknown History aerosol inhaler (Ventolin HFA) Exam Pertinent Lab Results Pertinent Lab Results: 04/2024 CBC and BMP on chart Creat up at 2.2 (baseline 2.1-2.4) H&H low Narrative Narrative: Per cardiology note: ECHO 03/2023 Mild conc LVH, nml LV cavity size and systolic function, nml RWM with EF 55-60%, nml RV size and systolic function, no hemodynamically signif valve disease, mild LAE, dil ascending aorta 4.1cm Nuc stress 05/2023: Freq APCswith exercise along with isolated PVCs with more ventricular ectopy and early recovery. Had to stop d/t dyspnea. Nml nuc perfusion after attentuation correction was applied. Mild scattered coronary artery calcification seen on CT imaging performed for attenuation correction. Assessment and Plan Assessment Anesthesia Assessment: Chart Reviewed
[2024-05-11] VITALS (10 sets, daily range): BP systolic 111–132; BP diastolic 61–87; PULSE 77–88; RESP 16–36; TEMP 36.3–37; O2SAT 95–98; BMI 29.3
--- NOTE | 2024-05-11 10:53 | HO.ANESPROP2 ---
[facility] Active Problems Active Problems: All Active Problems Complicated urinary tract infection (Acute) Hemorrhagic cystitis (Acute) Urinary urgency (Acute) Radiation cystitis (Acute) Gross hematuria (Acute) Erectile dysfunction (Acute) Rising PSA following treatment for malignant neoplasm of prostate (Acute) Prostate cancer (Acute) Pelvic pain (Acute) Past Medical History Medical History Thoracic aortic aneurysm Wheelchair dependent Oxygen dependent Anemia Bradycardia Hx of radiation therapy Acute and chronic respiratory failure DVT (deep venous thrombosis) Hyperlipidemia Hyperkalemia Sleep apnea CKD (chronic kidney disease) Oxygen dependent HTN (hypertension) COPD (chronic obstructive pulmonary disease) Other chronic pain Pelvic pain Painful ejaculation Rising PSA following treatment for malignant neoplasm of prostate Prostate cancer Functional capacity: wheelchair bound Surgical History Surgical History History of prostatectomy History of Problems with Anesthesia: No Social History Social History Household Members: None Patient Tobacco Use Status: Current everyday Tobacco user Cigarette Packs Per Day: 1 Cigarettes Per Day: 20.0 Use of substances other than those prescribed or required for medical reasons: No Are you DNR?: No Advance Directives: No Advance Directives Information Provided: Yes Meds Allergies Allergy/AdvReac Type Severity Reaction Status Date / Time No Known Allergies Allergy Verified 03/27/24 13:04 Active Medications: Current Medications Lactated Ringer's (Lr) 1,000 mls @ 50 mls/hr IVCONT .Q20H IZABELLA Levofloxacin (Levaquin) 500 mg in 100 mls @ 100 mls/hr IV PREOP ONE Stop: 05/11/24 11:27 Home Medications ?Medication ?Instructions ?Recorded ?Confirmed ?Last Taken ?Type amlodipine 10 mg tablet 10 mg PO DAILY 11/18/20 04/30/24 Unknown History fluticasone fur. 100 mcg-umeclid ea inhalation 11/18/20 04/30/24 Unknown History 62.5 mcg-vilant 25 mcg inhalat.powder fluticasone furoate 100 ea inhalation 11/18/20 04/30/24 Unknown History mcg-vilanterol 25 mcg/dose inhalation powder ipratropium 20 mcg-albuterol 100 1 puff PO QID PRN wheezing 11/18/20 04/30/24 Unknown History mcg/actuation mist for inhalation nicotine 10 mg inhalation cartridge 0 inh inhalation 11/18/20 04/30/24 Unknown History fluticasone fur. 200 mcg-umeclid 1 ea PO DAILY 08/02/21 04/30/24 Unknown History 62.5 mcg-vilant 25 mcg inhalat.powder (Trelegy Ellipta) albuterol sulfate 90 mcg/actuation 2 puff inhalation Q6H PRN wheezing 11/07/22 04/30/24 Unknown History aerosol inhaler (Ventolin HFA) Exam Height,Weight and Vital Signs: Height 5 ft 8 in Weight 87.271 kg Last Vital Signs Temp 98.6 F 05/11/24 10:34 Pulse 88 05/11/24 10:34 Resp 16 05/11/24 10:34 BP 131/87 05/11/24 10:34 Pulse Ox 96 05/11/24 10:34 O2 Del Method Nasal Cannula 05/11/24 10:34 O2 Flow Rate 2.5 05/11/24 10:34 Assessment and Plan Final Anesthetic Review History of Problems with Anesthesia: No
[2024-05-11] MEDS: Lactated Ringers 1,000 ML 50 ML IVCONT (11:04)
--- NOTE | 2024-05-11 12:40 | P.CONAN_ITS ---
[facility] Active Problems Active Problems: All Active Problems Complicated urinary tract infection (Acute) Hemorrhagic cystitis (Acute) Urinary urgency (Acute) Radiation cystitis (Acute) Gross hematuria (Acute) Erectile dysfunction (Acute) Rising PSA following treatment for malignant neoplasm of prostate (Acute) Prostate cancer (Acute) Pelvic pain (Acute) Past Medical History Medical History Thoracic aortic aneurysm Wheelchair dependent Oxygen dependent Anemia Bradycardia Hx of radiation therapy Acute and chronic respiratory failure DVT (deep venous thrombosis) Hyperlipidemia Hyperkalemia Sleep apnea CKD (chronic kidney disease) Oxygen dependent HTN (hypertension) COPD (chronic obstructive pulmonary disease) Other chronic pain Pelvic pain Painful ejaculation Rising PSA following treatment for malignant neoplasm of prostate Prostate cancer Functional capacity: independent ambulation Family History Family history of problems with anesthesia: No Surgical History Surgical History History of prostatectomy History of Problems with Anesthesia: No Social History Social History Household Members: None Patient Tobacco Use Status: Current everyday Tobacco user Cigarette Packs Per Day: 1 Cigarettes Per Day: 20.0 Use of substances other than those prescribed or required for medical reasons: No Are you DNR?: No Advance Directives: No Advance Directives Information Provided: Yes Meds Allergies Allergy/AdvReac Type Severity Reaction Status Date / Time bee pollen [bee stings] Allergy Anaphylaxis Verified 05/11/24 12:50 levofloxacin [From Levaquin] Allergy Anaphylaxis Verified 05/11/24 12:50 Active Medications: Current Medications Lactated Ringer's (Lr) 1,000 mls @ 50 mls/hr IVCONT .Q20H IZABELLA Last Admin: 05/11/24 11:04 Dose: 50 mls/hr Home Medications ?Medication ?Instructions ?Recorded ?Confirmed ?Last Taken ?Type amlodipine 10 mg tablet 10 mg PO DAILY 11/18/20 04/30/24 Unknown History fluticasone fur. 100 mcg-umeclid ea inhalation 11/18/20 04/30/24 Unknown History 62.5 mcg-vilant 25 mcg inhalat.powder fluticasone furoate 100 ea inhalation 11/18/20 04/30/24 Unknown History mcg-vilanterol 25 mcg/dose inhalation powder ipratropium 20 mcg-albuterol 100 1 puff PO QID PRN wheezing 11/18/20 04/30/24 Unknown History mcg/actuation mist for inhalation nicotine 10 mg inhalation cartridge 0 inh inhalation 11/18/20 04/30/24 Unknown History fluticasone fur. 200 mcg-umeclid 1 ea PO DAILY 08/02/21 04/30/24 Unknown History 62.5 mcg-vilant 25 mcg inhalat.powder (Trelegy Ellipta) albuterol sulfate 90 mcg/actuation 2 puff inhalation Q6H PRN wheezing 11/07/22 04/30/24 Unknown History aerosol inhaler (Ventolin HFA) Exam Height,Weight and Vital Signs: Height 5 ft 8 in Weight 87.271 kg Last Vital Signs Temp 98.6 F 05/11/24 10:34 Pulse 88 05/11/24 10:34 Resp 16 05/11/24 10:34 BP 131/87 05/11/24 10:34 Pulse Ox 96 05/11/24 10:34 O2 Del Method Nasal Cannula 05/11/24 10:34 O2 Flow Rate 2.5 05/11/24 10:34 Airway Mallampati Class: II TM Dist: >3cm Neck ROM: Full Partial: Upper Heart: irregular Lungs: Diminished BS Assessment and Plan Assessment Anesthesia Assessment: Anesthesia Plan Discussed and Smoking Cess. Discussed Final Anesthetic Review Family History of Problems with Anesthesia: No History of Problems with Anesthesia: No NPO: Yes ASA Class: III Final Preanesthetic Review: Meds/Allgs Chart Reviewed, Consent Obtained/Reviewed and Anes Risks/Benef Reviewed Patient Risk: Intermediate Procedure Risk: Intermediate Anesthetic Plan Anesthetic Plan: GA Disposition: Standard PACU
--- NOTE | 2024-05-11 12:46 | P.HPSUR_ITS ---
Pre-Procedural Eval Section A - 24 Hr Update-Section A only Date of Service: 05/11/24 The patient is an INPATIENT: No Changes since office visit: No Cold of Flu in the past 2 weeks, No New Medical Problems, No Changes in Medication and No Patient answered all questions The patient has been examined within 24 hours of the surgical procedure. The History & Physical has been completed within 30 days and I have reviewed it.: Yes Section B - Complete if H&P > 30 days Chief Complaint: 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 Details of Present Illness: Had been for cardiac clearance. Has been passed. Does have COPD. They had recommended follow-up with Pulmonary. Had not seen them in 3 years. Due to the recurrent and urgent nature of this procedure recommendation is to move ahead without full clearance. Relevant Family History (Specify if Yes): No Relevant Social History: Tobacco Use Present Medications: see Short Stay Collaborative assessment Medical History: Significant History History of Previous Operations: No relevant previous surgery Allergies: Allergies Allergy/AdvReac Type Severity Reaction Status Date / Time No Known Allergies Allergy Verified 03/27/24 13:04 Review of Systems Sugical H&P ROS: Negative: Constitution, Cardiovascular, Respiratory, Neurological, Psychiatric, Hem-Onc, Allergic/Immunologic, Gastrointestinal, Genitourinary, Musculoskeletal, Integumentary, Endocrine and Eyes/Ears/Nose/Throat Exam Surgical H&P Exam: Normal: HEENT, Normal: Heart, Normal: Lungs, Normal: Extremit ies, Normal: Abdomen, Normal: Skin and Normal: Neurological Plan Diagnosis/Plan: Unchanged (GreenLight laser fulguration of hemorrhagic cystitis) I have reviewed the history and physical and performed a pertinent physical examination on my patient. No changes have occurred unless specified. Time Spent With Patient Time: Total time managing care of this patient today ____ minutes.
--- NOTE | 2024-05-11 13:53 | P.OP_ITS ---
Operative Note Operative Note Date of Service: 05/11/24 Narrative: PreOperative Diagnosis: Radiation cystitis with hematuria Post Operative Diagnosis: Radiation cystitis load with hematuria Procedure: cystoscopy, GreenLight laser of areas of radiation cystitis - superfical bladder cancer - multiple areas up to 5cm Surgeon: Dr Seth Merritt Anesthesia: General Indications for procedure: Radiation cystitis with hematuria Procedure: After informed consent was verified the patient was brought to the operating room and placed in a supine position. Anesthesia was administered per protocol. The patient was placed in modified dorsal lithotomy position and prepped and draped in a sterile fashion. Safety pause time-out was performed. Antibiotics being given. Cystoscopy was performed. Multiple small areas on left side of the bladder consistent with small superficial bladder cancer seen. These are likely areas of hematuria. Using Gr eenLight laser with hemostatic setting of 20 these areas were fulgurated. Also fulgurated feeding vessels. Three other areas were fulgurated around the bladder neck. The patient tolerated the procedure well. They were extubated in operating room and transferred in stable conditions recovery area. Pathology: None Drains: None
[2024-05-11] MEDS: Acetaminophen 325 MG TABLET 975 MG PO (14:17)
[2024-05-11] MEDS: Phenazopyridine HCL 100 MG TABLET PO (14:18)
--- NOTE | 2024-05-11 14:36 | HO.POSTANES ---
Post Anesthesia Evaluation Post Anesthesia Evaluation Date of Service: 05/11/24 Vital Signs: Vital Signs Temp Pulse Resp BP Pulse Ox O2 Del Method O2 Flow Rate 05/11/24 14:17 77 24 H 117/65 98 Nasal Cannula 3 05/11/24 14:03 85 24 H 121/70 96 Nasal Cannula 3 05/11/24 13:58 85 28 H 112/67 96 Nasal Cannula 3 05/11/24 13:53 85 28 H 121/61 96 Nasal Cannula 3 05/11/24 13:48 98 F 83 36 H 111/73 95 Nasal Cannula 3 05/11/24 10:34 98.6 F 88 16 131/87 96 Nasal Cannula 2.5 Anesthesia: General LMA Mental Status: Awake Pain Control: Satisfactory Nausea/Vomiting: None Hydration: Adequate Anesthesia-Related Issues: No Anes. Related Issues
--- NOTE | 2024-05-11 15:48 | HO.POSTANES ---
Post Anesthesia Evaluation Post Anesthesia Evaluation Date of Service: 05/11/24 Vital Signs: Vital Signs Temp Pulse Resp BP Pulse Ox O2 Del Method O2 Flow Rate 05/11/24 15:02 97.3 F 78 24 H 132/69 95 Nasal Cannula 3 05/11/24 14:47 77 22 H 122/69 96 Nasal Cannula 2 05/11/24 14:32 79 22 H 121/61 96 Nasal Cannula 2 05/11/24 14:17 77 24 H 117/65 98 Nasal Cannula 3 05/11/24 14:03 85 24 H 121/70 96 Nasal Cannula 3 05/11/24 13:58 85 28 H 112/67 96 Nasal Cannula 3 05/11/24 13:53 85 28 H 121/61 96 Nasal Cannula 3 05/11/24 13:48 98 F 83 36 H 111/73 95 Nasal Cannula 3 05/11/24 13:02 97.3 F 82 24 H 132/69 95 Nasal Cannula 2 05/11/24 10:34 98.6 F 88 16 131/87 96 Nasal Cannula 2.5 Anesthesia: General Endotracheal-GETA and General LMA Mental Status: Awake Pain Control: Satisfactory Nausea/Vomiting: None Hydration: Adequate Anesthesia-Related Issues: No Anes. Related Issues
== END 2024-05-11 15:35 | disposition home or self-care (01) ==
PROVIDERS: PCP Internal Medicine; Visit Provider Urology
PROC: (CPT 52235; principal; 2024-05-11 12:00)
DX: N30.41 Irradiation cystitis with hematuria (principal); Z90.79 Acquired absence of other genital organ(s); R97.21 Rising PSA following treatment for malignant neoplasm of prostate; Z85.46 Personal history of malignant neoplasm of prostate; N52.9 Male erectile dysfunction, unspecified; N53.12 Painful ejaculation; G89.29 Other chronic pain; I12.9 Hypertensive chronic kidney disease with stage 1 through stage 4 chronic kidney disease, or unspecified chronic kidney disease; N18.9 Chronic kidney disease, unspecified; D64.9 Anemia, unspecified; J96.20 Acute and chronic respiratory failure, unspecified whether with hypoxia or hypercapnia; J44.9 Chronic obstructive pulmonary disease, unspecified; Z99.81 Dependence on supplemental oxygen; E78.5 Hyperlipidemia, unspecified; Z79.51 Long term (current) use of inhaled steroids; Z79.899 Other long term (current) drug therapy; F17.210 Nicotine dependence, cigarettes, uncomplicated
CPT/HCPCS: 52235; J0736; J1100; J1956; J2250; J2371; J2405; J2704; J3010

== ENCOUNTER → 2024-05-11 10:01 | Outpatient (BNV) | payer OTHER, SELFPAY | PROVIDERS: PCP Internal Medicine; Visit Provider Urology | DX: N30.41 Irradiation cystitis with hematuria (principal) | CPT/HCPCS: 52648 ==

== ENCOUNTER 2024-06-09 13:51 | Outpatient (AMB) | payer OTHER, SELFPAY ==
--- NOTE | 2024-06-09 13:43 | A.OFFVIS_ITS ---
Intake Visit Reasons: Bladder Greenlight laser- follow up Intake Note: Patient is present for bladder greenlight laser f/u Urology Medication:sildenafil,vitamin E, PENTOXIFYLLINE, TRANEXAMIC, TADALAFIL, FERROUS GLUCONATE Antibiotic Allergy:LEVOFLOXACIN Blood Thinner:NONE Rn Disease Management Required: No Allergies bee pollen [bee stings] Allergy (Verified 06/09/24 13:49) Anaphylaxis levofloxacin [From Levaquin] Allergy (Verified 06/09/24 13:49) Anaphylaxis HPI Comments Details: Favian is a very pleasant male. He is a patient of Dr. Wilburn. He seen for the following urologic conditions - prostate cancer - radiation cystitis - with hematuria - erectile dysfunction Telemedicine Evaluation 15 min Consultation Doximity Greg Video attempted with daughter Follow-up from GreenLight laser procedure for hemorrhagic cystitis Doing well No recurrence of bleeding Refill antioxidants Six-month follow-up check cysto office Erectile dysfunction Able to obtain but not maintain erection Failed daily tadalafil Does have some partial response to Viagra Prostate cancer initial low-grade 2009 RALP , recurrence 2016 with radiation Prostate cancer was diagnosed [address] Venegas. Diagnosis was reached by needle biopsy, for elevated PSA. The [place] grade is 3+3 = 6. TNM Classification of Malignant Tumours (TNM) T1c. The D'Maryann (NCCN) risk category is Low Risk (PSA< 10, Gl < 7, T1c). Initial therapy included Primary treatment 2009 , Prostatectomy (RRP/Robotic) with [facility] - Gl 3+4, N0, M0 , Additional treatment, Observation , Additional treatment, External Beam Radiation 2016 Recent labs included a PSA (prostate-specific antigen) 0.2, 2014 0.3, 2015 0.4, 2016 0.5, 05/23 0.4, 11/24 0.3, 03/24 0.4, 06/24 0.4, 12/23 0.1, 04/24 < 0.1, 08/25 < 0.1 T 690, 10/27 <0.1, 04/26 <0.1, 08/28 0.2, 05/29 0.2, 03/30 0.2 Recent imaging included 11/23 , a CT (computed tomography) scan, with no evidence of metastasis Associated conditions Stress incontinence with cough, laugh, sneeze, requires pad protection 11/24 - discussed sling Radiation cystitis Hematuria July 202107/27 Cystoscopy July 2021 radiation cystitis Imaging 08/27 CT cystitis [facility] Medical History Thoracic aortic aneurysm Wheelchair dependent Oxygen dependent Anemia Bradycardia Hx of radiation therapy Acute and chronic respiratory failure DVT (deep venous thrombosis) Hyperlipidemia Hyperkalemia Sleep apnea CKD (chronic kidney disease) Oxygen dependent HTN (hypertension) COPD (chronic obstructive pulmonary disease) Other chronic pain Pelvic pain Painful ejaculation Rising PSA following treatment for malignant neoplasm of prostate Prostate cancer Surgical History History of prostatectomy Social History Household Members: None Patient Tobacco Use Status: Current everyday Tobacco user Cigarette Packs Per Day: 1 Cigarettes Per Day: 20.0 Review of Systems Const All systems reviewed & are unremarkable except as noted in HPI and below Reports no additional complaints Resp Reports no additional complaints GI Reports no additional complaints Reports as per HPI Musc Reports no additional complaints Physical Exam Telemedicine evaluation Appropriate responses Regular breathing rate and rhythm HEENT Head: Yes normal to inspection Ears: hearing grossly normal bilaterally Eyes General: appearance normal, both eyes and all related structures Neck Neck: Yes normal visual inspection Chest Chest palpation & inspection: normal inspection of the chest Resp Effort & Inspection: normal respiratory effort and able to speak in complete sentences Telehealth Telehealth Telehealth Platform: [facility] Location of provider rendering services: practice address Location of patient: address on file Patient Identification confirmed using: Name, : Yes Telehealth method: video Patient verbally consented to treatment: Yes Patient verbally consented to billing insurance company: Yes Patient informed of any privacy concerns related to visit: Yes Minutes spent on Phone/Video with Pt.: 15 Assessment & Plan Assessment & Plan (1) Radiation cystitis: Code(s): N30.40 - 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 Category: Medical (2) Prostate cancer: Comment: Prostatectomy 2013, external beam radiation 2018 Code(s): C61 - Malignant neoplasm of prostate Category: Medical (3) Complicated urinary tract infection: Code(s): N39.0 - Urinary tract infection, site not specified Category: Medical Plan Six-month follow-up office Medications: Refilled vitamin E 670 mg PO DAILY 90 days 90 caps 1RF pentoxifylline ER administer with meals 400 mg PO BID 90 days 180 tabs 1RF N48.6 - Induration penis plastica, N52.9 - Male erectile dysfunction, unspecified Discontinued pentoxifylline ER must administer with a meal/food Discontinued Reason: Duplicate 400 mg PO BID 90 days 180 tabs 1RF tranexamic acid Discontinued Reason: Patient Completed Course 650 mg PO BID 7 days 14 tabs 0RF N30.01 - Acute cystitis with hematuria, N30.40 - 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 Patient Instructions: Imaging studies, laboratory and physical exam results were discussed and reviewed in detail. No major barriers to patient understanding were identified. An opportunity to ask questions regarding the treatment plan was provided. All questions were answered. The patient expressed understanding and agreement with the above treatment plan. The patient is aware they should contact our office by phone for worsening of their current condition or the appearance of new urologic symptoms. Compliance is encouraged with any medications and followup testing that is ordered. It is a privilege to participate in the urologic care of your patient. If you have any questions or concerns regarding treatment for the above conditions, or other urologic issues, please do not hesitate to contact me. The office telephone contact is [phone]. This note is constructed using voice recognition software. While every effort has been made to ensure accuracy rn disease management errors may have been included. Yours sincerely, Dr Seth Merritt MD, [facility] - Urology Providers of Expert, Compassionate Care for the Genitourinary System Coding Level of Care Code Tele Est Pt Level 3 (79269) Diagnoses Radiation cystitis N30.40 Prostate cancer C61 Complicated urinary tract infection N39.0
== END 2024-06-09 14:27 | disposition home or self-care (01) ==
LOC: HO.HUSH 13:51
PROVIDERS: PCP Internal Medicine; Visit Provider Urology
DX: N30.40 Irradiation cystitis without hematuria (principal); C61 Malignant neoplasm of prostate; N39.0 Urinary tract infection, site not specified
CPT/HCPCS: 99024

== ENCOUNTER → 2024-06-09 13:51 | Outpatient (BNVA) | payer OTHER, SELFPAY | PROVIDERS: PCP Internal Medicine; Visit Provider Urology | DX: N30.40 Irradiation cystitis without hematuria (principal); C61 Malignant neoplasm of prostate | CPT/HCPCS: 99212 ==

== ENCOUNTER 2025-01-22 13:00 | Outpatient (AMB) | payer OTHER, SELFPAY ==
--- NOTE | 2025-01-22 13:13 | A.OFFVIS_ITS ---
Intake Visit Reasons: cysto Intake Note: Pt presents to the office today for a Cystoscopy Lot:[id number] Exp:02/12/27 Allergies bee pollen [bee stings] Allergy (Verified 01/22/25 13:13) Anaphylaxis levofloxacin [From Levaquin] Allergy (Verified 01/22/25 13:13) Anaphylaxis HPI Comments Details: Favian is a very pleasant male. He is a patient of Dr. Wilburn. He seen for the following urologic conditions - prostate cancer - radiation cystitis - with hematuria - erectile dysfunction Cystoscopy performed Bladder looks very good Has been doing well with no bleeding Would like PDE5 refilled Erectile dysfunction Able to obtain but not maintain erection Failed daily tadalafil Does have some partial response to Viagra Prostate cancer initial low-grade 2009 RALP , recurrence 2016 with radiation Prostate cancer was diagnosed [address] Venegas. Diagnosis was reached by needle biopsy, for elevated PSA. The Morton grade is 3+3 = 6. TNM Classification of Malignant Tumours (TNM) T1c. The D'Maryann (NCCN) risk category is Low Risk (PSA< 10, Gl < 7, T1c). Initial therapy included Primary treatment 2009 , Prostatectomy (RRP/Robotic) with [facility] - Gl 3+4, N0, M0 , Additional treatment, Observation , Additional treatment, External Beam Radiation 2016 Recent labs included a PSA (prostate-specific antigen) 14 0.2, 2014 0.3, 2015 0.4, 2016 0.5, 05/23 0.4, 11/24 0.3, 03/24 0.4, 06/24 0.4, 12/23 0.1, 04/24 < 0.1, 08/25 < 0.1 T 690, 10/27 <0.1, 04/26 <0.1, 08/28 0.2, 05/29 0.2, 03/30 0.2 Recent imaging included 11/23 , a CT (computed tomography) scan, with no evidence of metastasis Associated conditions Stress incontinence with cough, laugh, sneeze, requires pad protection 11/24 - discussed sling Radiation cystitis Hematuria July 202107/27 Cystoscopy July 2021 radiation cystitis Imaging 08/27 CT cystitis GreenLight laser of areas 05/30 [facility] Medical History Thoracic aortic aneurysm Wheelchair dependent Oxygen dependent Anemia Bradycardia Hx of radiation therapy Acute and chronic respiratory failure DVT (deep venous thrombosis) Hyperlipidemia Hyperkalemia Sleep apnea CKD (chronic kidney disease) Oxygen dependent HTN (hypertension) COPD (chronic obstructive pulmonary disease) Other chronic pain Pelvic pain Painful ejaculation Rising PSA following treatment for malignant neoplasm of prostate Prostate cancer Surgical History History of prostatectomy Social History Household Members: None Patient Tobacco Use Status: Current everyday Tobacco user Cigarette Packs Per Day: 1 Cigarettes Per Day: 20.0 Review of Systems Const Denies chills and Denies fever(s) Card Reports no additional complaints and Denies syncope Resp Denies cough GI Denies abdominal pain and Denies heartburn Reports as per HPI and Denies change in libido Neuro Denies syncope Psych Denies change in libido Endo Denies change in libido Physical Exam Const General: cooperative, healthy appearing, comfortable and no acute distress Orientation/consciousness: patient oriented x3 HEENT Face and sinus: Yes normal facial exam Mouth: moist mucous membranes Neck Neck: Yes normal visual inspection, Yes full ROM and Yes trachea midline Chest Chest palpation & inspection: normal inspection of the chest Resp Effort & Inspection: normal respiratory effort, able to speak in complete sentences and no respiratory distress GI Inspection: Yes normal to inspection Back/Spine/Pelvis Cervical Spine: normal cervical lordosis Thoracic/Lumbar Spine: thoracic and lumbar spine normal to inspection Skin General skin exam: no rashes or lesions noted Neuro General: patient oriented x3, gait normal, tone normal and moves all extremities Extrem General: Yes normal to inspection and Yes capillary refill normal Office Procedures Cystoscopy Consent Discussed risk and benefit or proposed procedure with the patient. Information consent for procedure given to the patient. Discussed technical aspects, risks, benefits and alternatives in full. Addressed all of the patient's questions and concerns regarding the procedure. The patient demonstrated knowledge and understanding. They wish to proceed with this procedure. Preparation The patient was prepped in the usual manner. A early childhood lead teacher was present and in the room. Genitalia was prepped with betadine solution in a sterile manner. Lidocaine Jelly 2% was placed into the urethra and 16Fr flexible Olympus cystoscope was inserted into the meatus after adequate lubrication. Procedure Cystoscopy performed using a disposable Boundless Networkvue digital 16 Georgian cystoscope. Meatus circumcised Urethra anterior and posterior urethra normal Prostatic Urethra prostate absent Bladder examination with retroflexion of cystoscope Bladder Orifices normal shape and position Bladder Capacity small Trabeculations grade 1 Cellule Formation - Diverticulum Formation - Mucosal Erythema minor radiation cystitis damage Bladder Tumor - [id number] DISPOSABLE SCOPE URO-G FLEXIBLE SCOPE Procedure code (CPT) selection complete Office Meds lidocaine HCl 2 % mucosal jelly in applicator Performing Provider: Seth Merritt MD Performing Location: [facility] [place] [facility] Administered by: Rowan Malcolm RN on 01/22/25 13:30 Dose Route Admin Location Dispensed Lot Number Expiration Date NDC Box Sealing Machine Operator 10 mL intra-urethral 10 mL nitrofurantoin monohydrate/macrocrystals 100 mg capsule Performing Provider: Seth Merritt MD Performing Location: [facility] [place] [facility] Administered by: Rowan Malcolm RN on 01/22/25 13:30 Dose Route Admin Location Dispensed Lot Number Expiration Date NDC Box Sealing Machine Operator 100 mg PO 1 cap Results AMB Urinalysis, Automated UA Leukoctes 0 Byron/uL Last Edit by Elizabeth To CMA on 01/22/25 13:16 UA Nitrite Negative Last Edit by Elizabeth To CMA on 01/22/25 13:16 UA Urobilinogen 0.2 mg/dL Last Edit by Elizabeth To CMA on 01/22/25 13:16 UA Protein 100 mg/dL Last Edit by Elizabeth To CMA on 01/22/25 13:16 UA pH 6.0 Last Edit by Elizabeth To CMA on 01/22/25 13:16 UA Blood 0 Noel/uL Last Edit by Elizabeth To CMA on 01/22/25 13:16 UA Specific Hepler 1.010 Last Edit by Elizabeth To CMA on 01/22/25 13:16 UA Ketone Negative Last Edit by Elizabeth To CMA on 01/22/25 13:16 UA Bilirubin 0 mg/dL Last Edit by Elizabeth To CMA on 01/22/25 13:16 UA Glucose 0 mg/dL Last Edit by Elizabeth To CMA on 01/22/25 13:16 Results Reviewed Results Reviewed: Laboratory Last Values Urine pH (Auto) 6.0 01/22/25 13:14 Specific Hepler (Auto) 1.010 01/22/25 13:14 Urine Protein (Auto) 100 mg/dL 01/22/25 13:14 Glucose (UA)(Auto) 0 mg/dL 01/22/25 13:14 Urine Ketones (Auto) Negative 01/22/25 13:14 Urine Blood (Auto) 0 Noel/uL 01/22/25 13:14 Urine Nitrite (Auto) Negative 01/22/25 13:14 Urine Bilirubin (Auto) 0 mg/dL 01/22/25 13:14 Urine Urobilinogen (Auto) 0.2 mg/dL 01/22/25 13:14 Leukocyte Esterase (Auto) 0 Byron/uL 01/22/25 13:14 Assessment & Plan Assessment & Plan (1) Bladder instability: Code(s): N32.89 - Other specified disorders of bladder Category: Medical (2) Radiation cystitis: Code(s): N30.40 - 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 Category: Medical Plan Six-month follow-up PSA Orders: Orders AMB Urinalysis Automated Today N39.0 - Urinary tract infection, site not specified AMB Cystoscopy Today N30.40 - 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, N39.0 - Urinary tract infection, site not specified Prostate Specific Antigen 6 Months N30.91 - Cystitis, unspecified with hematuria Patient Instructions: This note is constructed using voice recognition software. While every effort has been made to ensure accuracy laborer starch factory errors may have been included. Imaging studies, laboratory and physical exam results were discussed and reviewed in detail. No major barriers to patient understanding were identified. An opportunity to ask questions regarding the treatment plan was provided. All questions were answered. The patient expressed understanding and agreement with the above treatment plan. The patient is aware they should contact our office by phone for worsening of t heir current condition or the appearance of new urologic symptoms. Compliance is encouraged with any medications and followup testing that is ordered. It is a privilege to participate in the urologic care of your patient. If you have any questions or concerns regarding treatment for the above conditions, or other urologic issues, please do not hesitate to contact me. The office telephone contact is [phone]. Sincerely, Dr Seth Merritt MD, [facility] - Urology Compassionate Specialist Care for the Genitourinary System Coding Level of Care Code Est Pt Level 3 (64698) Complex EM visit Add On G2211 Diagnoses Bladder instability N32.89 Radiation cystitis N30.40 CPT Codes Cystoscopy - CPT: 14176-[place]oynvo ([id number])
--- OUTSIDE RECORDS SUMMARY | 2025-01-22 13:34 | XMS_ITS | Clinical Summary ---
Author Organization [facility] Address [address] [place] [address] Care Team Providers Care Ad Operations Associate Name Role Phone Araceli Duncan MD Primary Care Provider [phone] Allergies Active Allergy Reactions Criticality Noted Date Comments Bee Sting Hives 09/11/2023 Medications Medication Sig Dispensed Refills Start Date End Date Status formoterol (PERFOROMIST) 20 MCG/2ML nebulizer solution Take 2 mL (20 mcg total) by nebulization every 12 (twelve) hours. 0 Active losartan (COZAAR) tablet 50 mg Take 1 tablet (50 mg total) by mouth daily. 0 Active amLODIPine (NORVASC) tablet 10 mg Take 1 tablet (10 mg total) by mouth daily. 0 Active calcitRIOL (ROCALTROL) capsule 0.25 mcg Take 1 capsule (0.25 mcg total) by mouth daily. 0 Active Albuterol Sulfate 108 (90 Base) MCG/ACT AEPB Inhale into the lungs. 0 Active spironolactone-hyd rochlorothiazide (ALDACTAZIDE) 25-25 MG per tablet Take 1 tablet by mouth daily. 0 Active Eliquis 5 MG TABS tablet TAKE 1 TABLET BY MOUTH TWICE DAILY 60 tablet 5 12/27/2023 Active Active Problems No known active problems Social History Tobacco Use Types Packs/Day Years Used Date Smoking Tobacco: Every Day Cigarettes Smokeless Tobacco: Never Tobacco Cessation:Ready to Q uit: Not Asked; Counseling Given: Not Answered Alcohol Use Standard Drinks/Week Comments Never 0 (1 standard drink = 0.6 oz pur e alcohol) Sex and Gender Information Value Date Recorded Sex Assigned at Not on file Gender Identity Not on file Sexual Orientation Not on file Job Start Date Occupation Industry Not on file Not on file Not on file Last Filed Vital Signs Vital Sign Reading Time Taken Comments Blood Pressure 163/98 09/11/2023 10:12 AM EST Pulse 94 09/11/2023 10:12 AM EST Temperature 36.1 ??C (97 ??F) 09/11/2023 10: 12 AM EST Respiratory Rate - - Oxygen Saturation 96% 09/11/2023 10: 12 AM EST Inhaled Oxygen Concentration - - Weight 90.6 kg (199 lb 12.8 oz) 023 10:12 AM EST Height - - Body Mass Index - - Plan of Treatment Health Maintenance Due Date Last Done Comments Hepatitis C Screening 1954 Depression Screening 1966 Preventative Health Evaluation 1972 Colon Cancer Screening (Colonoscopy) 1999 Shingrix-Zoster Vaccine (1 of 2) 2004 Fall Risk Assessment 2019 DTap / Tdap / Td (3 - Td or Tdap) 07/17/2023 07/17/2013, 07/11/2008 COVID-19 Vaccine ( season) 2024 10/08/2021 Influenza Vaccine (#1) 2024 3, 10/30/2011, 09/12/2010 RSV Adult > 60+ Yrs or (1 - 1-dose 75+ series) 2029 Pneumococcal Vaccine Completed 12/15/2021, 07/22/2019, 12/04/2015, Additional history exists Hepatitis B Vaccines Aged Out No long er eligible based on patient's age to complete this topic RSV Ped < 20 months Aged Out No longe r eligible based on patient's age to complete this topic Care Teams Ad Operations Associate Relationship Specialty Start Date End Date Araceli Duncan MD [address] [place] [id number] PCP - General Internal Medicine 09/09/23
--- OUTSIDE RECORDS SUMMARY | 2025-01-22 13:34 | XMS_ITS | Data Portability ---
Author Organization [employer] Address [address] [place] [id number] Care Team Providers Care Transit Mechanic Name Role Phone [facility] PL[facility] Referring Provider [phone] [facility] PRIMARY [facility] Referring Provider [phone] Assessment Encounter Date Assessment Date Assessment LastModified by Organization Details LastModified Time 02/16/2022 02/16/2022 I have reviewed and agree with the assessment and plan as documented by the engineer station mainline. I provided real-time medical direction for this encounter and was immediately available to provide additional phone-based assistance as needed. Patient with sore throat and productive cough. Vitals reassuring and well appearing per report. HAs recently started smoking significantly more. Tested for COVID which was negative. Administered a duoneb with improvement. Given AVSS and no fevers with sxs of viral syndrome (cough + sore throat). Suspect bacterial PNA less likely. Encouraged smoking cessation and nebulizer use. Red flags for callback / ED presentation discussed and pt voices understanding. [email or web address] Not available 02/16/2022 19:49:45 11/01/2022 11/01/2022 I have reviewed and agree with the assessment and plan as documented by the engineer station mainline. I provided real time medical direction for this encounter and was immediately available to provide additional phone based assistance as needed. History as noted by engineer station mainline. Pt with JAVON, started on CPAP several months ago. Pt reports that since starting on CPAP he has noted that he feels congested in the morning, which lasts for a few hours, then resolves. No cough, fevers or dyspnea. For the last few days, the pt notes that in the AM he has a mild sore throat that also resolves after a few hours. On exam, pt appears well. Vitals normal and Lungs clear bilaterally. Rapid Covid Ag, Flu and strep tests negative. Impression: Pt likely with a mild viral URI, but his symptoms may be related to his CPAP machine. Pt reports that he has not yet cleaned the machine since he started using it several months ago. Pt told to try using an OTC CPAP cleaning product to see if this helps his morning symptoms. It is reassuring that his symptoms do not last for the day. Pt instructed to seek medical attention right away with any worsening or new symptoms, which are reviewed with him. [email or web address] Not available 11/01/2022 13:36:45 07/06/2024 07/06/2024 69 yo M with severe COPD who's daughter called due to objective dyspnea at rest and reported visual hallucinations. SpO2 91% on home O2, but per medic appears to be working to breathe and has only slight breath sounds on lung exam. Medic recommended transport to the ED, I agree with this assessment. Pt is amenable and will be taken to the ED for potential hypercapneic respiratory failure. [email or web address] Not available 07/06/2024 17:02:53 Plan of Treatment Reminders Order Date Submit Date Provider Last Modified By Organization Details Last Modified Time Details Appointments None recorded. Lab rapid SARS CoV 2 Ag, QL IA, respiratory specimen 2022 023 [email or web address] [address] [place] [address], [id number] 3 13:31:52 rapid flu (A+B) 2022 023 [email or web address] [address] [place] [address], [id number] 3 13:31:52 rapid strep group A, throat 2022 023 [facility], [address] [place] [address], [phone] 3 13:31:52 Referral None recorded. Procedures None recorded. Surgeries None recorded. Imaging None recorded. Medication Orders None recorded. Patient TargetsNo targets recorded. Patient InstructionsNo instructions recorded. Reason for Referral None Reported. Results Created Date Observation Date Name Description Value Unit Range Abnormal Flag Note LastModifiedBy Organization Detail LastModifiedTime 11/01/1911/01/2022 rapid strep group A, throa t Strep negati ve Not Available Main - [facility] ed [address] [place] [address], [id number] 11/01/2022 13:30:54 11/01/1911/01/2022 rapid flu (A+B) Flu negati ve Not Available Main - [facility] [address] [place], [phone] 11/01/2022 13:30:47 11/01/1911/01/2022 rapid SARS CoV 2 Ag, QL IA, respi rator y speci men rapid SARS CoV 2 Ag, QL IA, respiratory specimen negati ve Not Available Main - [facility] [address] [place], [phone] 11/01/2022 13:30:43 Result Notes None recorded. Medical Equipment None Reported. Medications Name Sig Start Date Stop Date Status Note LastModified by Organization Details LastModified Time poise*pads 3 BAGS DEPEND MALE GUARDS active Not Available Not Available No t Available prevail guards for men misc active Not Available Not Available Not Available losartan 50 mg tablet TAKE 1 TABLET BY MOUTH DAILY active Not Available Not Available Not Available amoxicillin 500 mg capsule TAKE 1 CAPSULE BY MOUTH EVERY 8 HOURS active Not Available Not Available No t Available nicotine 14 mg/24 hr daily transdermal patch APPLY 1 PATCH TOPICALLY DAILY active Not Available Not Available No t Available albuterol sulfate 2.5 mg/3 mL (0.083 %) solution for nebulization INHALE 1 VIAL VIA NEBULIZER FOUR TIMES DAILY active Not Available Not Available No t Available azithromycin 250 mg tablet TAKE 2 TABLETS BY MOUTH FOR 1 DAY THEN TAKE 1 TABLET BY MOUTH DAILY DIRECTED active Not Available Not Available Not Available spironolacto ne 25 mg-hydrochlo rothiazide 25 mg tablet TAKE 1 TABLET BY MOUTH EVERY 48 HOURS active Not Available Not Available No t Available prednisone 20 mg tablet active Not Available Not Available Not Available sildenafil 100 mg tablet TAKE 1 TABLET BY MOUTH ONCE DAILY IF NEEDED FOR SEXUAL ACTIVITY. TAKE 60 MINUTES BEFORE INTENDED ACTIVITY. active Not Available Not Available No t Available pentoxifylli ne ER 400 mg tablet,exten ded release TAKE 1 TABLET BY MOUTH TWICE DAILY WITH FOOD active Not Available Not Available No t Available amlodipine 10 mg tablet TAKE 1 TABLET BY MOUTH DAILY active Not Available Not Available Not Available gabapentin 300 mg capsule TAKE 1 CAPSULE BY MOUTH TWICE DAILY active Not Available Not Available No t Available ibuprofen 600 mg tablet TAKE 1 TABLET BY MOUTH EVERY 6 HOURS NEEDED FOR PAIN. MAX 2400 MG DAILY active Not Available Not Available No t Available calcitriol 0.25 mcg capsule TAKE 1 CAPSULE BY MOUTH DAILY active Not Available Not Available Not Available amoxicillin 875 mg-potassium clavulanate 125 mg tablet TAKE 1 TABLET BY MOUTH EVERY 12 HOURS FOR 7 DAYS active Not Available Not Available N ot Available Ventolin HFA 90 mcg/actuatio n aerosol inhaler INHALE 2 PUFFS BY MOUTH EVERY 6 HOURS NEEDED FOR COUGH OR WHEEZING active Not Available Not Available No t Available cyclobenzapr ine 5 mg tablet TAKE 1 TABLET BY MOUTH THREE TIMES DAILY NEEDED FOR MUSCLE SPASM active Not Available Not Available No t Available bupropion HCl XL 150 mg 24 hr tablet, extended release TAKE 1 TABLET BY MOUTH DAILY FOR 7 DAYS THEN 2 TABLETS DAILY active Not Available Not Available No t Available vitamin E (dl, acetate) 450 mg (1,000 unit) capsule TAKE 1 CAPSULE BY MOUTH EVERY DAY active Not Available Not Available No t Available Combivent Respimat 20 mcg-100 mcg/actuatio n solution for inhalation INHALE 1 PUFF BY MOUTH FOUR TIMES DAILY. MAY TAKE ADDITIONAL PUFFS NEEDED. NOT TO EXCEED 6 PUFFS IN 24 HOURS active Not Available Not Available No t Available Trelegy Ellipta 100 mcg-62.5 mcg-25 mcg powder for inhalation INHALE 1 PUFF INTO THE LUNGS DAILY. RINSE MOUTH AND THROAT AFTER USE active Not Available Not Available No t Available Trelegy Ellipta 200 mcg-62.5 mcg-25 mcg powder for inhalation INHALE 1 PUFF BY MOUTH AT THE SAME TIME EVERY DAY active Not Available Not Available No t Available Vitals Date Recorded Body temperature Oxygen saturation Oxygen saturation in Arterial blood by Pulse oximetry Respiratory rate Heart rate Systolic blood pressure Diastolic blood pressure Provider Name and Address Organization Details Last Updated DateTime 4 98.1 [degF] 91 % 91 % 20 /min 44 /min 148 mm[Hg] 76 mm[Hg] Not Available [facility] 4 16:43:36 Date Recorded Respiratory rate Oxygen saturation Oxygen saturation in Arterial blood by Pulse oximetry Body weight Heart rate Body temperature Body weight Heart rate Oxygen saturation Oxygen saturation in Arterial blood by Pulse oximetry Respiratory rate Body temperature Systolic blood pressure Diastolic blood pressure Systolic blood pressure Diastolic blood pressure Provider Name and Address Organization Details Last Updated DateTime 3 18 /min 95 % 95 % 37565.4 8 g 64 /min 97.5 [degF] 80583.4 8 g 64 /min 95 % 95 % 18 /min 97.5 [degF] 142 mm[Hg] 92 mm[Hg] 142 mm[Hg] 92 mm[Hg] Not Available [facility] 3 13:20:35 Date Recorded Body temperature Oxygen saturation Oxygen saturation in Arterial blood by Pulse oximetry Heart rate Respiratory rate Systolic blood pressure Diastolic blood pressure Provider Name and Address Organization Details Last Updated DateTime 2 98.6 [degF] 98 % 98 % 85 /min 20 /min 137 mm[Hg] 87 mm[Hg] Not Available [facility] 2 15:32:18 Social History None recorded. Functional Status None recorded. Mental Status None recorded. Family History Nothing Reported. Medical History No medical history recorded. Past Encounters Encounter ID Performer Location Encounter Start Date Encounter Closed Date Diagnosis/Indication Diagnosis SNOMED-CT Code Diagnosis ICD10 Code Diagnosis Note [id number] Nelson Christie MD Main - [facility] [address] [place] [phone] 02/16/2022 14:58:21 06/08/2022 15:25:10 Cough 72090636 R05.1 [id number] Mahesh Mora MD Main - [facility] [address] [place] [id number] 11/01/2022 13:09:13 11/05/2022 16:53:03 Viral upper respiratory tract infection [id number] J06.9 [id number] KIRILL FERRARO MD Main - [facility] [address] [place] [id number] 07/06/2024 16:43:34 07/06/2024 18:12:00 Dyspnea 541803662 R06.00 Health Concerns Section Related Observation LastModified by Organization Detai ls LastModified Time None Recorded Concern Status LastModified by Organization Details LastModified Time None Recorded Advance Directives Directive None Recorded Payers Encounter Date Sequence Insurance Name Policy Number Policy Quijano Covered Member ID Quijano Member ID Guarantor Name 02/16/2022 1 [facility] - DOS PRIOR TO 2023 - DUAL ELIGIBLE (MEDICARE REPLACEMENT/ADV ANTAGE - HMO) Favian Monroy Sr [id number] Favian Monroy Sr 11/01/2022 1 [facility] - DOS PRIOR TO 2023 - DUAL ELIGIBLE (MEDICARE REPLACEMENT/ADV ANTAGE - HMO) Favian Monroy Sr [id number] Favian Monroy Sr 07/06/2024 1 [facility] - DOS ON OR AFTER 2023 - DUAL ELIGIBLE - [employer] OPT[employer] AND ONE CARE (MEDICARE REPLACEMENT/ADV ANTAGE - HMO) Favian Monroy Sr [id number] Favian Monroy Sr Notes Date Note Type Note Provider Name and Address Organization Details Recorded Time 02/16/2022 text/html HPI: Allergies Anaphylaxis - Bee Stings 66y/o male c/o sore throat, increase yellow sputum and feeling malaise for the past 4 days. Report recently given O2 for nighttime use. Reported increase use of cigarette use from 8 to 16 daily. Recent COVID test neg. ....................... ....................... ....................... ....................... ....................... ....................... ... Regrind Mill Operator Note: dispatched to the above location for a patient with a sore throat, yellow sputum and malaise for the past four day. patient has a history of copd. upon arrival patient was sitting on his front porch, no discomfort noted, patient is alert and oriented x4 and skin is warm pink and dry. patient states he has had a general feeling of malaise for the last four days. patient states he has been smoking more and thinks it may be part of the cause. at this time vitals were obtained and are as reported. [facility] contacted and ordered a rapid covid test and a DuoNeb. at this time rapid covid test preformed and reports negative, 2.5MG of Albuterol and .5MG of Ipratropium administered via nebulizer. patient reports a little relief with the use of the nebulizer. at this time [facility] contacted once more and states to have patient cut back on smoking and use his nebulizer up to every four hours. patient advised of doctors directions and advised of red flags, patient advised to seek treatment if red flags arise. cleared the scene without incident at this time. ....................... ....................... ....................... ....................... ....................... ....................... ... Disposition: Fulfilled Nelson Christie MD [address] [place] [address],[address], [place], [phone], [employer] 02/16/2022 19:49:54 11/01/2022 text/html This was a super vised home visit with engineer station mainline Irving Buchanan. HPI: Member reports that he does not feel well. He has a cough and congestion. Member worried that he may have covid. Member does not know how to use at home covid test. Member has a CPAP machine and worried that the bacteria is causing him to become congested . ....................... ....................... ....................... ....................... ....................... ....................... ... CRC Nursing Assessment: Comments: CRC RN DID NOT NEED FURTHER INFO ....................... ....................... ....................... ....................... ....................... ....................... ... Regrind Mill Operator Note: Pt presents awake and alert c/o sore throat in the morning x3 days. Pt also sts he wakes up congested every morning since starting his CAP device approx 2 months ago. Pt sts he has not cleaned the machine because he doesn't know how to. Pt sts congestion and sore throat only last for a few hour in the morning. Pt denies any cp, sob or f/n/v/d. POC covid, flu and strep negative. Clear/equal LS. Pt advised to reach out to the company that provided the CAP device and the MD who prescribed it to find instructions on how to clean it. Pt also advised to follow up with PCP if sx persist. ....................... ....................... ....................... ....................... ....................... ....................... ... Disposition: Fulfilled Mahesh Mora MD [address] [facility],[address], [place], [phone], [place] [employer] 11/01/2022 13:37:02 07/06/2024 text/html HPI: Schizoaffective disorder, CKD 4, CHF (3-4L O2), JAVON, BPH ....................... ....................... ....................... ....................... ....................... ....................... ... CRC Nurse Triage Notes (Lanie Wyatt): Chief Complaints: Shortness of Breath/Dyspnea PMH: Severe Persistent Mental Illness (SPMI), CHF, Hypertension, COPD/Asthma Comments: Called back in daughter Brenda and obtained further information as she was listed as field contact technician Reporting her father has PMH of COPD, on home 02, actively smoking also, he is c/o SOB, and worried his c02 level is elevated. She has a call out to the pulmonary MD also.She is requesting c02 level but we do not perform, explained scope of work and she was agreeable to a visit. She was going to his home to try to put him on BIPAP in the meantimeAndrea FLOR ....................... ....................... ....................... ....................... ....................... ....................... ... Regrind Mill Operator Note From Balta Lu: Dispatched to the call address for the male for the complaint of elevated CO2 levels. Pts daughter states Pt has Hx of COPD and retaining CO2. She states he had an episode like this back in December and he was found to have a TCO2 of 90. At that time Pt has some SoB and hallucinations. Daughter advises that he has had several episodes of hallucinations today and is started to act as he did the last time. She has been trying to convince him to go to the ED all day but he has been fighting her on it. Pt states he just was worried about sitting there and getting nothing done. Pt denies CP but did describe several events of hallucinating. Pt states he used his nebulizer approx 20 minutes ago which helped a little. Pt was found standing outside on deck, CAOx4, airway open and patent, breathing slightly labored, able to speak in full sentences but then has to take several deep breaths. mucous membranes pink and moist, skin color appropriate for race/warm/dry, pupils PERRL, -edema, lung sounds diminished in all delvalle. Afebrile. Pt was initially hesitant but ultimately agreed to go to the ED. Daughter called 911. [facility] consulted and agreed Pt should be evaluated in the ED. Pt transported to [facility] via EMS. ALL times are approx. ....................... ....................... ....................... ....................... ....................... ....................... ... Disposition: Fulfilled KIRILL FERRARO MD [address] [facility],[address], [place], [phone], [employer] 07/06/2024 17:03:14
--- OUTSIDE RECORDS SUMMARY | 2025-01-22 13:34 | XMS_ITS | Encounter Summary ---
Author Organization [employer] [facility] Address [address] [facility] [address] [place] [address] Care Team Providers Care Rehab Care Assistant Name Role Phone Unavailable Primary Care Provider Unavailabl e Encounter Details Date Type Department Care Team (Latest Contact Info) Description 12/21/2021 Abstract C CONVERSIONS Dental, Provider, DDS Social History Tobacco Use Types Packs/Day Years Used Date Smoking Tobacco: Never Assessed Sex and Gender Information Value Date Recorded Sex Assigned at Male 08/06/2022 10:39 AM EDT Legal Sex Male 10:39 AM EDT Gender Identity Choose not to disclose 10:39 AM EDT Sexual Orientation Choose not to disclose 2021 10:39 AM EDT documented as of this encounter Plan of Treatment Not on file documented as of this encounter Visit Diagnoses Not on filedocumented in this encounter
--- OUTSIDE RECORDS SUMMARY | 2025-01-22 13:34 | XMS_ITS | Clinical Summary ---
Author Organization [facility] [address] [place] [address] [address] [place] [address] Phone Care Team Providers Care Leather Flesher Name Role Phone Araceli Duncan MD Primary Care Provider [phone] Allergies Active Allergy Reactions Criticality Noted Date Comments Azithromycin Diarrhea 12/03/2023 Bee Venom Protein (Honey Bee) Hives High 2014 Levofloxacin Other 12/03/2023 Medications amLODIPine (NORVASC) 10 mg tablet Take 1 tablet (10 mg total) by mouth daily. Active NON FORMULARY CPAP HISTORICAL (HISTORICAL CPAP) Inhale into the lungs at bedtime. BIPAP Active diaper,brief,ad ult,disposable misc 40 Each by Does not apply route every 30 days. Pt requesting name brand depends mens underwear (pull on) color marin 71-102cm Size small 40/month 11 refills [id number]-[id number] 2 Active incontinence pad,liner,disp (DEPEND SOLORIO FOR MEN MISC) 2 Packages by Does not apply route every 30 days. Brand name depends male guard maximum for large surges 2 packages /month 11 refills DAVIN -[id number] 2 Active NON FORMULARY RESPIRATORY THERAPY SUPPLIES (CARETOUCH CPAP & BIPAP HOSE) MISC by Does not apply route. Active vitamin E acetate (VITAMIN E ORAL) Take 1 capsule by mouth daily. 1 Active ferrous sulfate 325 mg (65 mg elemental iron) tablet Take 1 Tablet by mouth 2 times daily. 4 Active folic acid (FOLVITE) 1 mg tablet Take 1 Tablet by mouth daily. 4 Active furosemide (LASIX) 40 mg tablet Take 1 Tablet by mouth 2 times daily. 4 Active rosuvastatin (CRESTOR) 20 mg tablet Take 1 Tablet by mouth daily. 3 Active sertraline (ZOLOFT) 100 mg tablet Take 1 Tablet by mouth daily. 4 Active tranexamic acid (LYSTEDA) 650 mg tablet tablet Take 1 Tablet by mouth 2 times daily. Active umeclidinium-vi lanteroL (Anoro Ellipta) 62.5-25 mcg/actuation inhaler TAKE 1 PUFF INHALATION DAILY FOR 90 DAYS 4 Active cholecalciferol (VITAMIN D-3) 50 mcg (2,000 unit) tablet Take 1 tablet (2,000 Units total) by mouth 1 (one) time each day. Active roflumilast (DALIRESP) 500 mcg tablet Take 1 tablet (500 mcg total) by mouth 1 (one) time each day. 4 Active albuterol 2.5 mg /3 mL (0.083 %) nebulizer solution Take 3 mL (2.5 mg total) by nebulization every 4 (four) hours if needed for shortness of breath or wheezing. 4 Active tamsulosin (FLOMAX) 0.4 mg 24 hr capsule TAKE 1 CAPSULE BY MOUTH EVERY DAY 30 MINUTES AFTER THE SAME MEAL 90 capsule 1 5 Active doxepin 3 mg tablet 5 Active Combivent Respimat 20-100 mcg/actuation inhaler INHALE 1 PUFF BY MOUTH FOUR TIMES DAILY. MAY TAKE ADDITIONAL PUFFS NEEDED. NOT TO EXCEED 6 PUFFS IN 24 HOURS 4 Active EPINEPHrine (EPIPEN) 0.3 mg/0.3 mL injection Inject 0.3 mL (0.3 mg total) into the thigh if needed for anaphylaxis. Call 911 after use. 1 each 2 5 11/20/19 26 Active calcitrioL (ROCALTROL) 0.25 mcg capsule Take 2 capsules (0.5 mcg total) by mouth 1 (one) time each day. 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 or unspecified chronic kidney disease, with heart failure ([facility] V24, [facility] V28) 11/27/2024 Acute on chronic diastolic c ongestive heart failure ([facility] V24, [facility] V28) 11/27/2024 Chronic kidney disease, stag e IV (severe) ([facility] V24, [facility] V28) 11/27/2024 Anemia of chronic kidney failure 11/27/2024 Other toxic encephalopathy 11/27/2024 Acute kidney failure, unspecified ([facility] V24) 11/27/2024 Hyperkalemia 11/27/2024 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 Benign prostatic hyperplasia with lower urinary tract symptoms 11/27/2024 Other obstructive and reflux uropathy 11/27/2024 Other specified anxiety disorders 11/27/2024 Tachycardia, unspecified 11/27/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 He does have a high burden of APCs. However, to be safe I am updating a 48-hour Holter monitor first available. I asked him to document not only symptoms in the diary but also episodes of bradycardia as detected by his peripheral pulse ox monitor. We can then correlate this to what is going on with his EKG on Holter to test whether or not my theory is correct. Acute on chronic respiratory failure with hypoxia and hypercapnia ([facility] V24, [facility] V28) 02/04/2024 Hematuria 02/04/2024 CAD (coronary artery disease) 07/03/2023 Overview (07/14/2024): - Scattered, mild coronary artery calcifications noted on CT scan imaging performed for attenuation correction of nuclear stress test - This has also been noted on low-dose lung cancer screening chest CTs Last Assessment & Plan: Continue medical management, no real anginal symptoms; continue current rosuvastatin, aspirin (HFpEF) heart failure with p reserved ejection fraction ([facility] V24, [facility] V28) 04/29/2023 Overview (07/14/2024): - During my visit with him on 04/29/2023 he described a years worth of shortness of breath beyond what he normally expects with his COPD and decreased response to rescue inhaler upon exertion - Echocardiogram on 03/27/2023 which showed mild, concentric left ventricular hypertrophy with normal LV cavity size and systolic function, normal regional wall motion with an ejection fraction of 55 to 60%, normal RV size and systolic function,no hemodynamically significant valve disease, mild left atrial enlargement, dilated ascending aorta at 4.1 cm. - Exercise nuclear stress test performed on 05/27/2023: Patient exercised for 5 minutes on a modified Bk protocol achieving 73% of max predicted heart rate. While it was a submaximal stress test, it was to symptom limitation. During exercise, he had frequent APCs with exercise along with isolated PVCs with more ventricular ectopy and early recovery. He had to stop due to dyspnea. There was normal nuclear perfusion after attenuation correction was applied. There were mild, scattered coronary artery calcifications seen on CT imaging performed for attenuation correction Last Assessment & Plan: Medically euvolemic on exam today and recovered renal function. All in all, things are going well and I do not want to rock the boat. I am continuing his current dose of Lasix 40 twice daily. We reviewed importance of sodium restriction which he observes. Atrial premature complexes 04/29/2023 Overview (07/14/2024): Holter monitor on 03/21/2023, Performed in work-up of irregular heartbeat during PCP visit and erratic heart rates at pulmonary rehab, showed sinus rhythm with sinus arrhythmia and an average heart rate of 80 bpm, he had a fairly high burden of APCs at 8% of all beats. They came in the form of isolated APCs, occasional atrial bigeminy and trigeminy, rare atrial pairs and a few 3 beat atrial runs. He had rare ventricular ectopy at 0.8% of all beats. There were no symptoms recorded. Last Assessment & Plan: See below under bradycardia assessment Thoracic aortic aneurysm ([facility] V24) Overview (07/14/2024): - Echocardiogram in March of this year showed the ascending aorta at 4.1 cm - Prior to that he had a CT of the chest as a part of the lung cancer screening program at 01/11/2023 which showed the ascending aorta at 3.9 cm at the level of the right PA Last Assessment & Plan: Continue surveillance through lung cancer screening program Hyperlipidemia 11/01/2022 Overview (07/14/2024): Last Assessment & Plan: Ideally, he should probably be on a statin but I will await stress test results before making any final decisions Secondary pulmonary arterial hypertension ([facility] V24, [facility] V28) 07/09/2022 Obstructive sleep apnea (adult) (pediatric) 06/07 Overview (07/14/2024): Followed by Dr. Schroeder Pulmonary nodules 03/25/2020 Tobacco use disorder 08/22/2017 Pancreatic lesion 03/21/2017 Emphysema, unspecified ([facility] V24, [facility] V28 ) 09/24/2014 CKD (chronic kidney disease) stage 3, GFR 30-59 ml/min ([facility] V24, [facility] V28) 04/12/2014 Overview (07/14/2024): Need to multiply by 1.21. 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 Continue monotherapy with amlodipine 10 mg daily. Encounters Date Type Department Care Team Description 01/20/2025 Telephone [facility] - [facility] [address] [facility] [address] [place] [phone] Arlene Mckeon MD 01/01/2025 1:58 PM EDT - 01/01/2025 11:59 PM EDT Hospital Encounter [facility] CT Scan [address] [place] [phone] Encounter for screening for malignant neoplasm of respiratory organs; Nicotine dependence, cigarettes, uncomplicated Discharge Disposition: Home or Self Care 12/22/2024 Telephone Nephrology - [address] [phone] Solo Tejada MD Labs Only 12/18/2024 3:15 PM EDT Lab Draw Station - [place] [address] [place] [address] Essential hypertension, benign (Primary Dx); Stage 3b chronic kidney disease ([facility] V24, [facility] V28) 11/27/2024 Billing Patient Not Present [facility] - [address] [phone] Araceli Duncan MD Acute on chronic respiratory failure with hypoxia and hypercapnia ([facility] V24, [facility] V28) (Primary Dx); Chronic obstructive pulmonary disease with acute exacerbation ([facility] V24, [facility] V28); Depressive disorder; Tobacco use disorder; Obstructive sleep apnea (adult) (pediatric) 11/20/2024 2:30 PM EST Office Visit Adult Medicine [facility] [address] [place] [address] Araceli Duncan MD Stage 3b chronic kidney disease ([facility] V24, [facility] V28) (Primary Dx); Foul smelling urine; Essential hypertension, benign 11/17/2024 Telephone Lung Screening Program - [place] [address] [facility] [address] [place] [address] Karol Quinones [place] Appointment (1st notification) 11/03/2024 1:00 PM EST Office Visit Nephrology - [facility] [address] [place] [phone] Solo Tejada MD Stage 3b chronic kidney disease (CMS/HCC V24, CMS/HCC V28) (Primary Dx); JAVON (obstructive sleep apnea); Essential hypertension, benign; Chronic heart failure with preserved ejection fraction ([facility] V24, [facility] V28) 10/30/2024 1:30 PM EST Ancillary Procedure [facility] - [facility] [address] [facility] [address] [place] [address] Bradycardia from Last 3 Months Immunizations Name Administration Dates Next Due Influenza trivalent, with pr eservative (Fluzone; Afluria) 6mo and older 07/17/2013,10/30/2011,09/12/2010 Pneumococcal conjugate 13 va lent (Prevnar 13, PCV13) 2mo and older 07/22/2019 Pneumococcal polysaccharide 23 valent (Pneumovax 23) 2yo and older 12/15/2021,06/06/2015 Tdap Tetanus diptheria acell ular pertussis (Boostrix; Adacel) 7yo and older 07/17/2013 Surgical History Surgery Date Site/Laterality Comments TONSILLECTOMY PROCEDURE: HISTORICAL TONSILLECTOMY APPENDECTOMY PROCEDURE: TX APPENDECTOMY COLONOSCOPY 02/2005 PROCEDURE: TX COLONOSCOPY STOMA DX INCLUDING COLLJ SPEC SPX ESOPHAGOGASTRODUODENOSCOPY 07/07/08 PROCEDURE: TX ESOPHAGOGASTRODUODENOSCOPY TRANSORAL DIAGNOSTIC; COMMENT: hiatal hernia PROSTATECTOMY PROCEDURE: PROSTATECTOMY; COMMENT: at [facility] COLONOSCOPY 07/04/15 [facility] PROCEDURE: OUTSIDE COLONOSCOPY; COMMENT: tics and hemorrhoids; repeat in 10 yrs under propofol Medical History Medical History Date Comments Depressive disorder, not els ewhere classified DX:Depressive disorder, not elsewhere classified Schizophreniform disorder, c hronic condition ([facility] V24, [facility] V28) DX:Schizophrenifo rm disorder, chronic condition ([facility]) Essential hypertension, benign 02/04/2006 D X:Essential hypertension, benign COPD (chronic obstructive pu lmonary disease) ([facility] V24, [facility] V28) 09/24/2014 DX:COPD (chronic o bstructive pulmonary disease) ([facility]) JAVON (obstructive sleep apnea) 06/25/2022 DX :JAVON (obstructive sleep apnea); COMMENT: Followed by Dr. Schroeder Secondary pulmonary arterial hypertension ([facility] V24, [facility] V28) 07/09/2022 DX:Secondary p ulmonary arterial hypertension ([facility]) Supplemental oxygen dependent 07/09/2022 DX :Supplemental oxygen dependent; COMMENT: At bedtime Family History Medical History Relation Name Comments No Known Problems Aunt Prostate cancer Brother 1 Essen Lung cancer Brother 2 Carlitos + smoker Prostate cancer Brother 2 Carlitos Hypertension Daughter Abdominal Aortic Anuerysm (AAA) Father Cataracts Father Coronary artery disease Father in h is 50s No Known Problems Maternal Grandfather No Known Problems Maternal Grandmother No Known Problems Mother No Known Problems Other No Known Problems Paternal Grandfather No Known Problems Paternal Grandmother No Known Problems Sister Cataracts Uncle 1 paternal Prostate cancer Uncle 2 father's capo e Blindness Neg Hx Breast cancer Neg Hx Glaucoma Neg Hx Macular degeneration Neg Hx Strabismus Neg Hx Relation Name Status Comments Aunt Brother 1 Essen Alive Brother 2 Carlitos Daughter Alive Father early CA, abdom inal aortic aneurysm Maternal Grandfather Maternal Grandmother Mother of unknown cancer Other Paternal Grandfather Paternal Grandmother Sister Uncle 1 Uncle 2 Social History Tobacco Use Types Packs/Day Years Used Date Smoking Tobacco: Every Day Cigarettes Smokeless Tobacco: Never Alcohol Use Standard Drinks/Week Comments No 0 (1 standard drink = 0.6 oz pur e alcohol) Sex and Gender Information Value Date Recorded Sex Assigned at Not on file Legal Sex Male 9:09 PM EST Gender Identity Not on file Sexual Orientation Not on file Obstetrics History Last Filed Vital Signs Vital Sign Reading Time Taken Comments Blood Pressure 132/68 11/20/2024 2:49 PM EST Pulse 78 11/20/2024 2:49 PM EST Temperature 36 ??C (96.8 ??F) 11/20/2024 2:49 PM EST Respiratory Rate 18 11/20/2024 2:49 PM EST Oxygen Saturation 94% 11/20/2024 2:49 PM EST Inhaled Oxygen Concentration - - Weight 84.8 kg (187 lb) 11/20/2024 2:49 PM EST Height 174 cm (5' 8.5 ) 11/20/2024 2:49 PM EST Body Mass Index 28.02 11/20/2024 2:49 PM EST Plan of Treatment Upcoming Encounters Date Type Department Care Team (Late st Contact Info) Description 03/23/2025 1:15 PM EDT Office Visit Adult Medicine [facility] [address] [place] [phone] Araceli Duncan MD [address] [place] [phone] 05/25/2025 3:15 PM EDT Office Visit Nephrology - [facility] [address] [place] [phone] Solo Tejada MD [address] [place] [phone] Health Maintenance Due Date Last Done Comments Zoster Vaccines (1 of 2) 1973 RSV Immunization Adult Patients (1 - Risk 60-74 years 1-dose series) 2014 Depression Screening 09/15/2022 Falls Risk Assessment 09/15/2022 Medicare Annual Wellness Visit 09/15/2022 Social Influencers of Health Screening 09/15/2022 DTaP,Tdap,and Td Vaccines (3 - Td or Tdap) 07/17/2023 07/17/2013, 07/11/2008 COVID-19 Vaccine ( season) 2024 10/08/2021, 12/26/2020, 12/25/2020, Additional history exists Colorectal Cancer Screening: Colonoscopy 07/04/2025 07/04/2015 Hypertension/CHF/CAD Annual BMP Blood Test 12/18/2025 12/18/2024, 11/03/2024, 08/11/2024, Additional history exists Cholesterol Screening (Lipid Panel) 11/03/2029 11/03/2024, 09/06/2023 Hepatitis C Screening Completed 11/12/2011 Abdominal Aortic Aneurysm (AAA) Screen Completed 08/18/2019, 08/18/2019 Pneumococcal Vaccine: 50+ Years Completed 12/15/2021, 07/22/2019, 12/04/2015, Additional history exists Influenza Vaccine Completed 07/30/2024, , 10/30/2011, Additional history exists HIB Vaccines Aged Out No longer eligi ble based on patient's age to complete this topic HPV Vaccines Aged Out No longer eligi ble based on patient's age to complete this topic Hepatitis A Vaccines Aged Out No long er eligible based on patient's age to complete this topic Hepatitis B Vaccines Aged Out No long er eligible based on patient's age to complete this topic IPV Vaccines Aged Out No longer eligi ble based on patient's age to complete this topic MMR Vaccines Aged Out No longer eligi ble based on patient's age to complete this topic Meningococcal ACWY Vaccine Aged Out N o longer eligible based on patient's age to complete this topic Meningococcal B Vaccine Aged Out No l onger eligible based on patient's age to complete this topic RSV Immunization Patients Under 20 months Aged Out No longer eligible based on patient's age to complete this topic Varicella Vaccines Aged Out No longer eligible based on patient's age to complete this topic Procedures Procedure Name Priority Date/Time Associated Diagnosis Comments CT LUNG SCREENING Routine 01/01/2025 2:0 7 PM EDT Encounter for screening for malignant neoplasm of respiratory organs Nicotine dependence, cigarettes, uncomplicated CBC WITH AUTO DIFFERENTIAL Routine 12/18/2024 3:15 PM EDT Stage 3b chronic kidney disease (CMS/HCC V24, CMS/HCC V28) BASIC METABOLIC PANEL Routine 12/18/2024 3:15 PM EDT Stage 3b chronic kidney disease (CMS/HCC V24, CMS/HCC V28) PARATHYROID HORMONE INTACT Routine 12/18/2024 3:15 PM EDT Essential hypertension, benign CBC AND DIFFERENTIAL Routine 12/18/2024 3:15 PM EDT Stage 3b chronic kidney disease (CMS/HCC V24, CMS/HCC V28) POC URINE AUTO W/O MICRO Routine 11/20/2024 4:49 PM EST Foul smelling urine CULTURE URINE Routine 11/20/2024 4:47 PM EST Foul smelling urine LIPID PANEL WITH REFLEX TO DIRECT LDL Routine 11/03/2024 2:48 PM EST Hyperlipidemia, unspecified hyperlipidemia type ELECTROLYTE PANEL Routine 11/03/2024 2:4 8 PM EST Stage 3b chronic kidney disease (CMS/HCC V24, CMS/HCC V28) JAVON (obstructive sleep apnea) Essential hypertension, benign Chronic heart failure with preserved ejection fraction (CMS/HCC V24, CMS/HCC V28) BUN Routine 11/03/2024 2:48 PM EST Stage 3b chronic kidney disease (CMS/HCC V24, CMS/HCC V28) JAVON (obstructive sleep apnea) Essential hypertension, benign Chronic heart failure with preserved ejection fraction (CMS/HCC V24, CMS/HCC V28) CREATININE, SERUM Routine 11/03/2024 2:4 8 PM EST Stage 3b chronic kidney disease (CMS/HCC V24, CMS/HCC V28) JAVON (obstructive sleep apnea) Essential hypertension, benign Chronic heart failure with preserved ejection fraction (CMS/HCC V24, CMS/HCC V28) PROTEIN AND CREATININE WITH RATIO, URINE Routine 11/03/2024 2:48 PM EST Stage 3b chronic kidney disease (CMS/HCC V24, CMS/HCC V28) JAVON (obstructive sleep apnea) Essential hypertension, benign Chronic heart failure with preserved ejection fraction (CMS/HCC V24, CMS/HCC V28) VITAMIN D 25 HYDROXY Routine 11/03/2024 2:48 PM EST Stage 3b chronic kidney disease (CMS/HCC V24, CMS/HCC V28) JAVON (obstructive sleep apnea) Essential hypertension, benign Chronic heart failure with preserved ejection fraction (CMS/HCC V24, CMS/HCC V28) CALCIUM Routine 11/03/2024 2:48 PM EST Acute on chronic respiratory failure with hypoxia and hypercapnia (CMS/HCC V24, CMS/HCC V28) COPD (chronic obstructive pulmonary disease) (CMS/HCC V24, CMS/HCC V28) Heart failure with preserved ejection fraction, unspecified HF chronicity (CMS/HCC V24, CMS/HCC V28) Atrial premature complexes Bradycardia CAD (coronary artery disease) Essential hypertension, benign Stage 3 chronic kidney disease, unspecified whether stage 3a or 3b CKD (CMS/HCC V24, CMS/HCC V28) Heartburn Pancreatic lesion Prostate cancer (CMS/HCC V24, CMS/[facility] V28) Hyperlipidemia, unspecified hyperlipidemia type Schizophreniform disorder, chronic condition (CMS/HCC V24, CMS/[facility] V28) Substance addiction (CMS/[facility] V24, [facility] V28) PARATHYROID HORMONE INTACT Routine 11/03/2024 2:48 PM EST Acute on chronic respiratory failure with hypoxia and hypercapnia (CMS/HCC V24, CMS/HCC V28) COPD (chronic obstructive pulmonary disease) (CMS/HCC V24, CMS/HCC V28) Heart failure with preserved ejection fraction, unspecified HF chronicity (CMS/HCC V24, CMS/HCC V28) Atrial premature complexes Bradycardia CAD (coronary artery disease) Essential hypertension, benign Stage 3 chronic kidney disease, unspecified whether stage 3a or 3b CKD (CMS/HCC V24, CMS/HCC V28) Heartburn Pancreatic lesion Prostate cancer (CMS/HCC V24, CMS/HCC V28) Hyperlipidemia, unspecified hyperlipidemia type Schizophreniform disorder, chronic condition (CMS/HCC V24, CMS/HCC V28) Substance addiction (CMS/[facility] V24, CMS/[facility] V28) CARDIAC HOLTER MONITOR (REPORT GENERATED IN HOUSE) Routine 10/30/2024 1:33 PM EST Bradycardia US ABDOMINAL AORTA REAL TIME SCREEN STUDY AAA Routine 08/18/2019 8:53 AM EST Nicotine dependence, unspecified, uncomplicated COLONOSCOPY Routine 07/04/2015 HEPATITIS C SCREENING Routine 11/12/2011 from Last 3 Months or Most Recently Relevant to Health Maintenance Results * CT Lung Screening (01/01/2025 2:07 PM EDT) Anatomical Region Laterality Modality Chest Computed Tomogra phy 01/06/2025 11:2 9 AM EDT Impressions 01/06/2025 11:54 AM EDT No suspicious pulmonary nodule. ASSESSMENT: LungRADS Category2: Benign Appearance/Behavior - Continue annual screening with LDCT in 12 months Please see below for additional details of LungRADS Algorithm. Complete Lung RADS description including probabilities of malignancy and prevalence can be found at: http://www.acr.org/Quality-Safety/Resources/LungRADS LungRADS Version 1.0 Assessment Categories Release date: February 01, 2014 Category 0: Incomplete - Additional lung cancer screening CT images and/or comparison with prior CT is needed. - Prior chest CT(s) being located for comparison. - Part or all of the lungs cannot be evaluated. Category 1: Negative - Continue annual screening with LDCT in 12 months - No lung nodules - Nodule(s) with specific calcifications (complete, central, popcorn, concentric rings) and fat containing nodules Category 2: Benign Appearance/Behavior - Continue annual screening with LDCT in 12 months - Solid nodule < 6 mm or new solid nodule < 4 mm. - Part solid nodule(s) < 6 mm total diameter on baseline screening. - Ground glass nodule < 20 mm or ? 20 mm and unchanged or slowly growing. - Category 3 or 4 nodules unchanged for at least 3 months. Category 3: Probably Benign - 6 month LDCT - Solid nodule(s) ? 6 to < 8 mm at baseline OR new 4 mm to < 6 mm. - Part solid nodule(s) ? 6 mm total diameter with solid component < 6 mm OR new < 6 mm total diameter. - Ground glass nodule ? [address] or new. Category 4A: Suspicious - 3 month LDCT; PET/CT may be used when there is ? 8 mm solid component - Solid nodule(s) ? 8 to < 15 mm at baseline OR growing < 8 mm OR new 6 to < 8 mm. - Part solid nodule(s) ? 6 mm with solid component ? 6 mm to < 8 mm OR with a new or growing < 4 mm solid component. - Endobronchial nodule. Category 4B: Suspicious - Chest CT with or without contrast, PET/CT and/or tissue sampling depending on the probability of malignancy and comorbidities. PET/CT may be used when there is a ? 8 mm solid component. - Solid nodule(s) ? 15 mm OR new or growing and ? 8 mm - Part solid nodule(s) with a solid component ? 8 mm OR a new or growing ? 4 mm solid component Category 4X: Suspicious - Chest CT with or without contrast, PET/CT and/or tissue sampling depending on the probability of malignancy and comorbidities. PET/CT may be used when there is a ? 8 mm solid component. - Category 3 or 4 nodules with additional features or imaging findings that increases the suspicion of malignancy. Category S: Clinically Significant or Potentially Clinically Significant Findings (non lung cancer) Category C: Modifier for patients with a prior diagnosis of lung cancer who return to screening NOTES: 1) Negative screen: does not mean that an individual does not have lung cancer. 2) Size: nodules should be measured on lung windows and reported as the average diameter rounded to the nearest whole number; for round nodules only a single diameter measurement is necessary. 3) Size Thresholds: apply to nodules at first detection, and that grow and reach a higher size category. 4) Growth: an increase in size of > 1.5 mm. 5) Exam Category: each exam should be coded 0-4 based on the nodule(s). 6) Exam Modifiers: S and C modifiers may be added to the 0-4 category. 7) Lung Cancer Diagnosis: Once a patient is diagnosed with lung cancer, further management (including additional imaging such as PET/CT) may be performed for purposes of lung cancer staging; this is no longer screening. 8) Practice audit definitions: a negative screen is defined as categories 1 and 2; a positive screen is defined as categories 3 and 4. 10) Category 4X: nodules with additional imaging findings that increase the suspicion of lung cancer, such as spiculation, GGN that doubles in size in 1 year, enlarged lymph nodes etc. 11) Nodules with features of an intrapulmonary lymph node should be managed by mean diameter and the 0-4 numerical category classification. 12) Category 3 and 4A nodules that are unchanged on interval CT should be coded as category 2, and individuals returned to screening in 12 months. 13) LDCT = low dose chest CT. -------- FINAL REPORT -------- Dictated By: Gely Tran Dictated Date: 01/06/2025 11:29 ET Assigned Physician: Gely Tran Reviewed and Electronically Signed By: Gely Tran Signed Date: 01/06/2025 11:54 ET Workstation ID: [id number] Transcribed By: Self Edit Transcribed Date: 01/06/2025 11:29 ET Narrative 01/06/2025 11:54 AM EDT History: ??69 year-old 68 pack-year current smoker, asymptomatic, for lung cancer screening. Comparison: 12/03/2023 Technique: Helical volumetric imaging of the thorax was performed, using low- dose technique, without IV contrast. DLP: 186 mGy/cm CT dose reduction technique utilized with one or more of the following: Automated exposure control and/or adjustment of the mA and/or kV according to patient size and/or use of iterative reconstruction technique. Findings: Lungs: Stable scarring in the right lower lobe and lingula. ??Mild bronchiectasis in the right lower lobe. ??Stable 2 mm nodule in the right lower lobe. Pleura: There are no pleural effusions. ??No calcified or noncalcified pleural plaques. Heart/Aorta: Stable ascending aortic ectasia. ??Coronary artery calcifications. ??Mild cardiomegaly. Esophagus: The esophagus is not significantly thickened or dilated. ?? Lymph Nodes:There are no enlarged thoracic lymph nodes. ?? Upper Abdomen: This study was performed without contrast and with lower than standard dose. These factors reduce the sensitivity for detection of small lesions in the upper abdomen. Number Osseous Structures: No suspicious osseous abnormalities. Procedure Note Gely Tran MD - 01/06/2025 History: 69 year-old 68 pack-year current smoker, asymptomatic, for lungcancer screening. Comparison: 12/03/2023 Technique: Helical volumetric imaging of the thorax was performed, usinglow-dose technique, without IV contrast. DLP: 186 mGy/cm CT dose reduction technique utilized with one or more of the following:Automated exposure control and/or adjustment of the mA and/or kV accordingto patient size and/or use of iterative reconstruction technique. Findings: Lungs: Stable scarring in the right lower lobe and lingula. Mildbronchiectasis in the right lower lobe. Stable 2 mm nodule in the rightlower lobe. Pleura: There are no pleural effusions. No calcified or noncalcifiedpleural plaques. Heart/Aorta: Stable ascending aortic ectasia. Coronary arterycalcifications. Mild cardiomegaly. Esophagus: The esophagus is not significantly thickened or dilated. Lymph Nodes:There are no enlarged thoracic lymph nodes. Upper Abdomen: This study was performed without contrast and with lowerthan standard dose. These factors reduce the sensitivity for detection ofsmall lesions in the upper abdomen. Number Osseous Structures: No suspicious osseous abnormalities. IMPRESSION: No suspicious pulmonary nodule. ASSESSMENT: LungRADS Category2: Benign Appearance/Behavior - Continue annual screeningwith LDCT in 12 months Please see below for additional details of LungRADS Algorithm. CompleteLung RADS description including probabilities of malignancy and prevalencecan be found at: http://www.acr.org/Quality-Safety/Resources/LungRADS LungRADS Version 1.0 Assessment Categories Release date: February 01, 2014 Category 0: Incomplete - Additional lung cancer screening CT images and/orcomparison with prior CT is needed. - Prior chest CT(s) being located for comparison. - Part or all of the lungs cannot be evaluated. Category 1: Negative - Continue annual screening with LDCT in 12 months - No lung nodules - Nodule(s) with specific calcifications (complete, central, popcorn,concentric rings) and fat containing nodules Category 2: Benign Appearance/Behavior - Continue annual screening withLDCT in 12 months - Solid nodule < 6 mm or new solid nodule < 4 mm. - Part solid nodule(s) < 6 mm total diameter on baseline screening. - Ground glass nodule < 20 mm or ? 20 mm and unchanged or slowlygrowing. - Category 3 or 4 nodules unchanged for at least 3 months. Category 3: Probably Benign - 6 month LDCT - Solid nodule(s) ? 6 to < 8 mm at baseline OR new 4 mm to < 6 mm. - Part solid nodule(s) ? 6 mm total diameter with solid component < 6 mmOR new < 6 mm total diameter. - Ground glass nodule ? [address] or new. Category 4A: Suspicious - 3 month LDCT; PET/CT may be used when there is ?8 mm solid component - Solid nodule(s) ? 8 to < 15 mm at baseline OR growing < 8 mm OR new 6 to< 8 mm. - Part solid nodule(s) ? 6 mm with solid component ? 6 mm to < 8 mm ORwith a new or growing < 4 mm solid component. - Endobronchial nodule. Category 4B: Suspicious - Chest CT with or without contrast, PET/CT and/ortissue sampling depending on the probability of malignancy andcomorbidities. PET/CT may be used when there is a ? 8 mm solidcomponent. - Solid nodule(s) ? 15 mm OR new or growing and ? 8 mm - Part solid nodule(s) with a solid component ? 8 mm OR a new or growing ?4 mm solid component Category 4X: Suspicious - Chest CT with or without contrast, PET/CT and/ortissue sampling depending on the probability of malignancy andcomorbidities. PET/CT may be used when there is a ? 8 mm solidcomponent. - Category 3 or 4 nodules with additional features or imaging findingsthat increases the suspicion of malignancy. Category S: Clinically Significant or Potentially Clinically SignificantFindings (non lung cancer) Category C: Modifier for patients with a prior diagnosis of lung cancerwho return to screening NOTES: 1) Negative screen: does not mean that an individual does not have lungcancer. 2) Size: nodules should be measured on lung windows and reported as theaverage diameter rounded to the nearest whole number; for round nodulesonly a single diameter measurement is necessary. 3) Size Thresholds: apply to nodules at first detection, and that grow andreach a higher size category. 4) Growth: an increase in size of > 1.5 mm. 5) Exam Category: each exam should be coded 0-4 based on the nodule(s). 6) Exam Modifiers: S and C modifiers may be added to the 0-4 category. 7) Lung Cancer Diagnosis: Once a patient is diagnosed with lung cancer,further management (including additional imaging such as PET/CT) may beperformed for purposes of lung cancer staging; this is no longerscreening. 8) Practice audit definitions: a negative screen is defined as categories1 and 2; a positive screen is defined as categories 3 and 4. 10) Category 4X: nodules with additional imaging findings that increasethe suspicion of lung cancer, such as spiculation, GGN that doubles insize in 1 year, enlarged lymph nodes etc. 11) Nodules with features of an intrapulmonary lymph node should bemanaged by mean diameter and the 0-4 numerical category classification. 12) Category 3 and 4A nodules that are unchanged on interval CT should becoded as category 2, and individuals returned to screening in 12 months. 13) LDCT = low dose chest CT. -------- FINAL REPORT -------- Dictated By: Gely Tran Dictated Date: 01/06/2025 11:29 ET Assigned Physician: Gely Tran Reviewed and Electronically Signed By: Gely Tran Signed Date: 01/06/2025 11:54 ET Workstation ID: [id number] Transcribed By: Self Edit Transcribed Date: 01/06/2025 11:29 ET Nikos Cardenas MD [facility] CT PROCEDURES Final Result * (ABNORMAL) CBC auto differential (12/18/2024 3:15 PM EDT) WBC 6.8 4.8 - 10.8 K/mcL LAB HEMETOLOGY METHOD 12/18/2024 6:47 PM EDT [facility] RBC 4.60 4.50 - 5.50 M/mcL LAB [facility] Hemoglobin 12.5(L) 13.5 - 17.5 g/dL LAB HEMETOLOGY METHOD 12/18/2024 6:47 PM EDT [facility] Hematocrit 42.2 42.0 - 54.0 % LAB HEMETOLOGY METHOD 12/18/2024 6:47 PM EDT [facility] MCV 92.3 79.0 - 98.0 FL LAB HEMETOLOGY METHOD [facility] MCH 27.4 27.0 - 32.0 pcg LAB HEMETOLOGY METHOD 12/18/2024 6:47 PM EDT [facility] MCHC 29.6(L) 32.0 - 37.0 g/dL LAB HEMETOLOGY METHOD [facility]24 [facility] RDW 13.9 11.0 - 15.0 % LAB HEMETOLOGY METHOD 12/18/2024 6:47 PM EDT [facility] Platelets 237 130 - 400 K/mcL LAB HEMETOLOGY METHOD 12/18/2024 6:47 PM EDT [facility] MPV 9.7 7.0 - 11.0 FL LAB HEMETOLOGY METHOD [facility] NRBC 0.0 <1.0 % LAB HEMETOLOGY METHOD [facility] NRBC Absolute 0.00 <0.10 K/mcL LAB HEMETOLOGY METHOD [facility] Neutrophils Relative 61.2 % LAB HEMETOLOGY METHOD [facility] Lymphocytes Relative 24.8 % LAB HEMETOLOGY METHOD 12/18/2024 6:47 PM [facility] Monocytes Relative 11.7 % LAB HEMETOLOGY METHOD [facility] Eosinophils Relative 1.5 % LAB HEMETOLOGY METHOD 12/[facility]24 6[facility] Basophils Relative 0.4 % LAB HEMETOLOGY METHOD [facility] Immature Granulocytes Relative 0.4 % LAB HEMETOLOGY METHOD 12/18/2024 6:47 PM [facility] Neutrophils Absolute 4.17 1.50 - 7.00 K/mcL LAB HEMETOLOGY METHOD 12/18/2024 6:47 PM EDT [facility] Lymphocytes Absolute 1.69 1.00 - 5.00 K/mcL LAB HEMETOLOGY METHOD 12/18/2024 6:47 PM EDT [facility] Monocytes Absolute 0.80 0.20 - 1.00 K/mcL LAB HEMETOLOGY METHOD 12/18/2024 6:47 PM EDT [facility] Eosinophils Absolute 0.10 0.00 - 0.50 K/mcL LAB HEMETOLOGY METHOD 12/18/2024 6:47 PM EDT [facility] Basophils Absolute 0.03 0.00 - 0.20 K/mcL LAB HEMETOLOGY METHOD 12/18/2024 6:47 PM EDT [facility] Immature Granulocytes Absolute 0.03 0.00 - 0.03 K/mcL LAB HEMETOLOGY METHOD 12/18/2024 6:47 PM EDT [facility] Blood Venous blood specimen / Unknown Venipuncture / Unknown 12/18/2024 3:15 PM EDT 12/18/2024 3:15 PM EDT us Araceli Duncan MD LAB BLOOD ORDERABLES Final Resul t [facility] [address] [place] [address], * (ABNORMAL) Parathyroid hormone intact (12/18/2024 3:15 PM EDT) Only the most recent of2 resultswithin the time period is included. PTH 247.4(H) 18.5 - 88.0 pcg/mL LAB CHEMISTRY METHOD 12/18/2024 7:18 PM EDT [facility] Blood Venous blood specimen / Unknown Venipuncture / Unknown 12/18/2024 3:15 PM EDT 12/18/2024 3:15 PM EDT us Araceli Duncan MD LAB BLOOD ORDERABLES Final Resul t [facility] [address] [place] [address], * (ABNORMAL) Basic metabolic panel (12/18/2024 3:15 PM EDT) Sodium 136 133 - 145 mmol/L LAB CHEMISTRY METHOD 12/18/2024 6:59 PM EDT [facility] Potassium 4.8 3.5 - 5.5 mmol/L LAB CHEMISTRY METHOD 12/18/2024 6:59 PM EDT [facility] Chloride 103 96 - 110 mmol/L LAB CHEMISTRY METHOD 12/18/2024 6:59 PM [facility] CO2 29 21 - 32 mmol/L LAB CHEMISTRY METHOD 12/18/2024 6:59 PM [facility] Anion Gap 4 3 - 11 LAB CHEMISTRY METHOD 12/18/2024 6:59 PM [facility] Glucose 85 70 - 100 mg/dL LAB CHEMISTRY METHOD 12/18/2024 6:59 PM [facility] BUN 28(H) 5 - 25 mg/dL LAB CHEMISTRY METHOD 12/18/2024 6:59 PM [facility] Creatinine 2.62(H) 0.70 - 1.30 mg/dL LAB CHEMISTRY METHOD 12/18/2024 6:59 PM EDT [facility] eGFR 25(L) >=60 mL/min/1. 73m2 LAB CHEMISTRY METHOD 12/18/2024 6:59 PM T [facility] Comment:Calculation based on the??Chronic Kidney Disease Epidemiology Collaboration (CKD-EPI) equation refit??without adjustment for race. BUN/Creatinine Ratio 10.7 LAB CHEMISTRY METHOD 12/18/2024 6:59 PM T [facility] Calcium 10.1 8.5 - 10.5 mg/dL LAB CHEMISTRY METHOD 12/18/2024 6:59 PM EDT [facility] Blood Venous blood specimen / Unknown Venipuncture / Unknown 12/18/2024 3:15 PM EDT 12/18/2024 3:15 PM EDT us Araceli Duncan MD LAB BLOOD ORDERABLES Final Resul t Performing Organization Address City/[facility]/ZIP Co de Phone Number [facility] [address] [place] [address], [place] [phone] * (ABNORMAL) POC Urine Auto W/O Micro (11/20/2024 4:49 PM EST) Pathologist [facility] Glucose UA POC Negative Negative, Trace mg/dL Bilirubin UA POC Negative Negative, Small Ketones UA POC Negative Negative, Trace Specific [place] UA POC 1.020 Blood UA POC Trace(A) Negative, Large PH UA POC 5.0 Protein UA POC 100(A) Negative, >=300 mg/dL Urobilinogen UA POC 2.0 mg/dL Nitrite UA POC Negative Negative Leukocytes UA POC Negative Negative Urine Urine specimen obtained by clean catch procedure / Unknown 11/20/2024 4:49 PM EST us Araceli Duncan MD POINT OF CARE TEST ENTER/EDIT OR DERABLES Final Result * Culture urine (11/20/2024 4:47 PM EST) Pathologist [facility] Culture, Urine No growth 11/21/2024 12:56 PM EST [facility] Urine Urine specimen obtained by clean catch procedure / Unknown Non-blood Collection / Unknown 11/20/2024 4:47 PM EST 11/20/2024 4:47 PM EST us Araceli Duncan MD LAB MICROBIOLOGY - GENERAL ORDER WILLIS Final Result [facility] [address] [place] [address], [place] [phone] * Lipid panel with reflex to direct LDL (11/03/2024 2:48 PM EST) Cholesterol 151 0 - 200 mg/dL LAB CHEMISTRY METHOD 11/03/2024 6:56 PM [facility] Triglycerides 113 0 - 150 mg/dL LAB CHEMISTRY METHOD 11/03/2024 6:56 PM [facility] HDL 65 >=40 mg/dL LAB CHEMISTRY METHOD 11/03/2024 6:56 PM [facility] LDL Calculated 63 0 - 100 mg/dL LAB CHEMISTRY METHOD 11/03/2024 6:56 PM [facility] VLDL Cholesterol Mau 22.6 mg/dL LAB CHEMISTRY METHOD 11/03/2024 6:56 PM [facility] Non HDL Chol. (LDL+VLDL) 86 <145 mg/dL LAB CHEMISTRY METHOD 11/03/2024 6:56 PM [facility] Chol/HDL Ratio 2.3 0.0 - 4.4 LAB CHEMISTRY METHOD 11/03/2024 6:56 PM [facility] Blood Venous blood specimen / Unknown Venipuncture / Unknown 11/03/2024 2:48 PM EST 11/03/2024 2:48 PM EST us Arlene Mckeon MD LAB BLOOD ORDERABLES Final Resu lt [facility] [address] [place] [address], [place] [phone] * (ABNORMAL) Protein and creatinine with ratio, urine (11/03/2024 2:48 PM EST) Protein, Urine 228 mg/dL LAB CHEMISTRY METHOD 11/03/2024 7:08 PM [facility] Prot/Creat, Ur 2.35(H) <=0.20 mg/mg creat LAB CHEMISTRY METHOD 11/03/2024 7:08 PM EST [facility] Creatinine, Urine 97.0 mg/dL LAB CHEMISTRY METHOD 11/03/2024 7:08 PM EST [facility] Urine Urine specimen obtained by clean catch procedure / Unknown Non-blood Collection / Unknown 11/03/2024 2:48 PM EST 11/03/2024 2:48 PM EST us Solo Tejada MD LAB URINE ORDERABLES Final Resu lt Performing Organization Address [facility]/ZIP Co de Phone Number [facility] [address] [place] [address], [place] [phone] * (ABNORMAL) Creatinine (11/03/2024 2:48 PM EST) Creatinine 2.94(H) 0.70 - 1.30 mg/dL LAB CHEMISTRY METHOD 11/03/2024 6:56 PM EST [facility] eGFR 22(L) >=60 mL/min/1. 73m2 LAB CHEMISTRY METHOD 11/03/2024 6:56 PM EST [facility] Comment:Calculation based on the??Chronic Kidney Disease Epidemiology Collaboration (CKD-EPI) equation refit??without adjustment for race. Blood Venous blood specimen / Unknown Venipuncture / Unknown 11/03/2024 2:48 PM EST 11/03/2024 2:48 PM EST us Solo Tejada MD LAB BLOOD ORDERABLES Final Resu lt Performing Organization Address City/[facility]/ZIP Co de Phone Number [facility] [address] [place] [address], [place] [phone] * Vitamin D 25 hydroxy (11/03/2024 2:48 PM EST) Vit D, 25-Hydroxy 43.8 30.0 - 80.0 ng/mL LAB CHEMISTRY METHOD 11/03/2024 7:17 PM EST [facility] Blood Venous blood specimen / Unknown Venipuncture / Unknown 11/03/2024 2:48 PM EST 11/03/2024 2:48 PM EST us Solo Tejada MD LAB BLOOD ORDERABLES Final Resu lt Performing Organization Address [facility]/ZIP Co de Phone Number [facility] [address] [place] [address], [place] [phone] * BUN (11/03/2024 2:48 PM EST) BUN 24 5 - 25 mg/dL LAB CHEMISTRY METHOD 11/03/2024 6:56 PM EST [facility] Blood Venous blood specimen / Unknown Venipuncture / Unknown 11/03/2024 2:48 PM EST 11/03/2024 2:48 PM EST us Solo Tejada MD LAB BLOOD ORDERABLES Final Resu lt Performing Organization Address [facility] Co de Phone Number [facility] [address] [place] [address], [place] [phone] * Calcium (11/03/2024 2:48 PM EST) Calcium 10.2 8.5 - 10.5 mg/dL LAB CHEMISTRY METHOD 11/03/2024 6:56 PM EST [facility] Blood Venous blood specimen / Unknown Venipuncture / Unknown 11/03/2024 2:48 PM EST 11/03/2024 2:48 PM EST us Solo Tejada MD LAB BLOOD ORDERABLES Final Resu lt Performing Organization Address City/[facility]/ZIP Co de Phone Number [facility] [address] [place] [address], [place] [phone] * Electrolyte panel (11/03/2024 2:48 PM EST) Sodium 134 133 - 145 mmol/L LAB CHEMISTRY METHOD 11/03/2024 6:56 PM EST [facility] Potassium 4.4 3.5 - 5.5 mmol/L LAB CHEMISTRY METHOD 11/03/2024 6:56 PM EST [facility] Comment:Hemolysis present Chloride 102 96 - 110 mmol/L LAB CHEMISTRY METHOD 11/03/2024 6:56 PM EST [facility] CO2 26 21 - 32 mmol/L LAB CHEMISTRY METHOD 11/03/2024 6:56 PM EST [facility] Anion Gap 6 3 - 11 LAB CHEMISTRY METHOD 11/03/2024 6:56 PM EST [facility] Blood Venous blood specimen / Unknown Venipuncture / Unknown 11/03/2024 2:48 PM EST 11/03/2024 2:48 PM EST Solo Tejada MD LAB BLOOD ORDERABLES Final Resu lt [facility] [address] [place] [address], * CARDIAC HOLTER MONITOR (REPORT GENERATED IN HOUSE) (10/30/2024 1:33 PM EST) Anatomical Region Laterality Modality Cardiac Diagnost ic Narrative 11/12/2024 4:57 PM EST [facility]PARTMENT [address] [place] [id number] TEL: FAX: Type of Test: 48 Hour Holter Monitor Date of Test: 10/30/2024 Ordering Provider: Arlene Mckeon MD Reason for Test: Bradycardia PVCA Harvest Manager Findings: ?? 1: Predominant rhythm was sinus rhythm with sinus arrhythmia. ??Average heart rate was 89 beats a minute. 2: Frequent PACs, atrial pairs, and atrial bigeminy. Occasional atrial trigeminy. Rare atrial runs lasting up to 11 beats with rates up to 162 BPM. ??Overall burden was 31.9%! 3: Frequent PVCs and aberrantly conducted beats. Occasional ventricular trigeminy. Rare couplets and one episode of ventricular bigeminy. ??No runs of nonsustained VT. ??Overall PVC [place] was 3.7%. ?? 4: No significant pause noted. 5: Diary returned with no symptoms noted. Impression: ?? 1. ??Very high burden of supraventricular ectopy representing 31.9% of all beats. ??There were rare atrial runs with the longest being 11 beats. 2. ??No symptoms documented. Arlene Mckeon MD [facility] PROCEDURES Final Result * US ABDOMINAL AORTA REAL TIME SCREEN STUDY AAA (08/18/2019 8:53 AM EST) Anatomical Region Laterality Modality Ultrasound 07/22/2019 10:1 2 AM EDT Narrative 08/18/2019 9:12 AM EST EXAM: Abdominal aorta ultrasound, AAA screening HISTORY: Abdominal aortic aneurysm screening. ??History of tobacco use. COMPARISON: None FINDINGS: Proximal aorta measures 2.6 cm in maximal diameter. Mid aorta measures 2 cm. ??Distal aorta measures 1.9 cm. ??Proximal right common iliac artery measures 1.3 cm. Proximal left common iliac artery measures 1.3 cm. Aorta and iliac vessels are widely patent on color Doppler. IMPRESSION: IMPRESSION: No evidence of an abdominal aortic aneurysm. Procedure Note Federica Kaiser MD - 09/25/2022 EXAM: Abdominal aorta ultrasound, AAA screening HISTORY: Abdominal aortic aneurysm screening. History of tobacco use. COMPARISON: None FINDINGS: Proximal aorta measures 2.6 cm in maximal diameter. Mid aortameasures 2 cm. Distal aorta measures 1.9 cm. Proximal right common iliac artery measures 1.3cm. Proximal left common iliac artery measures 1.3 cm. Aorta and iliac vessels are widelypatent on color Doppler. IMPRESSION: IMPRESSION: No evidence of an abdominal aortic aneurysm. Carmen BROWNING IMG US PROCEDURES Final Result * Colonoscopy (07/04/2015) Colonoscopy No Interpretation , Abstracted Anatomical Region Laterality Modality Other Historical Provider HEALTH MAINTENANCE Final Result * Hepatitis C Screening (11/12/2011) Pathologist [facility] Hepatitis C Screening Abstracted Historical Provider HEALTH MAINTENANCE Final Result from Last 3 Months or Most Recently Relevant to Health Maintenance Insurance [employer] MEDICARE Member Subscriber Plan / Payer (Ef fective 2019-Present) Name:Eliana Favian Relation to Subscriber:Self Name:Favian Monroy Payer ID:[id number] Group ID:[id number] Type:Not on file Address: [place] [address] [address] [id number] Care Teams Leather 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
--- OUTSIDE RECORDS SUMMARY | 2025-01-22 13:34 | XMS_ITS | Clinical Summary ---
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 Role Phone Unavailable Primary Care Provider Unavailabl e Social History Tobacco Use Types Packs/Day Years Used Date Smoking Tobacco: Never Assessed Sex and Gender Information Value Date Recorded Sex Assigned at Male 08/06/2022 10:39 AM EDT Legal Sex Male 10:39 AM EDT Gender Identity Choose not to disclose 10:39 AM EDT Sexual Orientation Choose not to disclose 2021 10:39 AM EDT Plan of Treatment Health Maintenance Due Date Last Done Comments CT Colonography 1954 Colonoscopy 1954 Colorectal Cancer Screening 1954 Depression Screening 1954 FIT DNA/Cologuard 1954 FIT 1954 FOBT 1954 Lipid Panel 1954 Sigmoidoscopy 1954 Alcohol/Substance Use Screening 1966 Tobacco Screening 1966 DTaP/Tdap/Td Vaccines (1 - Tdap) 1973 Pneumococcal Vaccine: 50+ Ye ars (1 of 1 - PCV) 2004 Zoster Vaccines (1 of 2) 2004 COVID-19 Vaccine ( - 2023-2 5 season) 2024 Influenza Vaccine (#1) 2024 RSV Patients and Pa tients Aged 60 years or older (1 - 1-dose 75+ series) 2029 HIB Vaccines Aged Out No longer eligi [...] patient's age to complete this topic Meningococcal Vaccine Aged Out No ana judith eligible based on patient's age to complete this topic RSV under 20 months Aged Out No longe r eligible based on patient's age to complete this topic Rotavirus Vaccines Aged Out No longer eligible based on patient's age to complete this topic
--- OUTSIDE RECORDS SUMMARY | 2025-01-22 13:34 | XMS_ITS | Encounter Summary ---
Author Organization [employer] Address [address] [place] [address] Care Team Providers Care Medical Illustrator Name Role Phone Araceli Duncan MD Primary Care Provider [phone] Encounter Details Date Type Department Care Team (Late st Contact Info) Description 01/20/2025 Telephone [facility] [address] [facility] [address] [place] [phone] Arlene Mckeon MD [address] [place] [address] Social History Tobacco Use Types Packs/Day Years Used Date Smoking Tobacco: Every Day Cigarettes Smokeless Tobacco: Never Alcohol Use Standard Drinks/Week Comments No 0 (1 standard drink = 0.6 oz pur e alcohol) Sex and Gender Information Value Date Recorded Sex Assigned at Not on file Legal Sex Male 9:09 PM EST Gender Identity Not on file Sexual Orientation Not on file documented as of this encounter Progress Notes * Dean Crow - 01/20/2025 1:43 PM EDT Called patients daughter and spoke with her. Tried to book appointment from recall list, daughter stated she wanted the appointment with Dr. Mckeon and not the ALEX, said she'll call back. documented in this encounter Plan of Treatment Upcoming Encounters Date Type Department Care Team (Late st Contact Info) Description 03/23/2025 1:15 PM EDT Office Visit Adult Medicine [facility] [address] [place] [phone] Araceli Duncan MD [address] [place] [address] 05/25/2025 3:15 PM EDT Office Visit Nephrology - [address] [place] [phone] Solo Tejada MD [address] [place] [address] documented as of this encounter Visit Diagnoses Not on filedocumented in this encounter Care Teams Medical Illustrator Relationship Specialty Start Date End Date Araceli Duncan MD [address] [place] [id number] PCP - General Internal Medicine 10/30/24 documented as of this encounter
--- OUTSIDE RECORDS SUMMARY | 2025-01-22 13:34 | XMS_ITS | Encounter Summary ---
Author Organization [facility] Address [address] [place] [address] Care Team Providers Care Key Entry Operator Name Role Phone Araceli Duncan MD Primary Care Provider [phone] Reason for Visit * Reason Onset Date Comments Labs Only 12/22/2024 Encounter Details Date Type Department Care Team (Late st Contact Info) Description 12/22/2024 Telephone Nephrology - [place] [address] [place] [phone] Solo Tejada MD [address] [place] [phone] Labs Only Social History Tobacco Use Types Packs/Day Years [...] as of this encounter Progress Notes * Adia Tenorio - 12/22/2024 3:10 PM EDT Can someone from this department call the daughter to go over labs and schedule next appointment . She can be reached at [phone] documented in this encounter Plan of Treatment Upcoming Encounters Date Type Department Care Team (Late st Contact Info) Description 03/23/2025 1:15 PM EDT Office Visit [place] [facility] [address] [place] [phone] Araceli Duncan MD [address] [place] [address] 05/25/2025 3:15 PM EDT Office Visit Nephrology - [facility] [place] [phone] Solo Tejdaa MD [address] [place] [address] documented as of this encounter Visit Diagnoses Not on filedocumented in this encounter Care Teams Key Entry Operator Relationship Specialty Start Date End Date Araceli Duncan MD [address] [place] [address] PCP - General Internal Medicine 10/30/24 documented as of this encounter
--- OUTSIDE RECORDS SUMMARY | 2025-01-22 13:34 | XMS_ITS | Clinical Summary ---
Author Organization [facility] Address [address] [place] [address] Care Team Providers Care Pickler Helper Name Role Phone Unavailable Primary Care Provider Unavailabl e Encounters Date Type Department Care Team Description 11/03/2024 Orders Only [facility] [address] [facility] [address] [place] [address] Solo Tejada MD from Last 3 Months Social History Tobacco Use Types Packs/Day Years Used Date Smoking Tobacco: Never Assessed Sex and Gender Information Value Date Recorded Sex Assigned at Not on file Legal Sex Male 9:29 AM EDT Gender Identity Not on file Sexual Orientation Not on file Plan of Treatment Health Maintenance Due Date Last Done Comments Colorectal Cancer Screening: Annual FOBT 2003 Colorectal Cancer Screening: Colonoscopy 2003 Colorectal Cancer Screening: Sigmoidoscopy 2003 Pneumococcal Vaccine: 50+ Ye ars (2 of 2 - PCV) 12/04/2016 12/04/2015 Influenza Vaccine (Season Ended) 2025 Hepatitis B Vaccine Aged Out No longe r eligible based on patient's age to complete this topic Procedures Procedure Name Priority Date/Time Associated Diagnosis Comments VITAMIN D 25 HYDROXY Routine 11/03/2024 2:48 PM EST PTH, INTACT Routine 11/03/2024 2:48 PM EST PROTEIN / CREATININE RATIO, URINE Routine 11/03/2024 2:48 PM EST CALCIUM Routine 11/03/2024 2:48 PM EST CREATININE, SERUM Routine 11/03/2024 2:4 8 PM EST ELECTROLYTE PANEL Routine 11/03/2024 2:4 8 PM EST BUN Routine 11/03/2024 2:48 PM EST from Last 3 Months Results * (ABNORMAL) Protein, Total, Random Urine w/Creatinine (Protein/Creat Ratio) (11/03/2024 2:48 PM EST) Protein, Ur 228 mg/dL [facility] Urine Protein/Creati nine Ratio 2.35(H) <=0.20 mg/mg creat [facility] Creatinine, Urine 97.0 mg/dL [facility] 11/03/2024 2:48 PM EST 11/03/2024 6:22 PM EST us Solo Tejada MD LAB URINE ORDERABLES Final Resu lt Performing Organization Address City/[facility]/ZIP Co de Phone Number [facility] [address] [place] [address] * Vitamin D 25 Hydroxy (11/03/2024 2:48 PM EST) Vitamin D, 25-OH, Total 43.8 30.0 - 80.0 ng/mL [facility] 11/03/2024 2:48 PM EST 11/03/2024 6:23 PM EST us Solo Tejada MD LAB BLOOD ORDERABLES Final Resu lt [facility] [address] [place] [address] * BUN (11/03/2024 2:48 PM EST) BUN 24 5 - 25 mg/dL [facility] 11/03/2024 2:48 PM EST 11/03/2024 6:23 PM EST us Solo Tejada MD LAB BLOOD ORDERABLES Final Resu lt Performing Organization Address [facility] Co de Phone Number [facility] [address] [place] [address] * (ABNORMAL) PTH, Intact (11/03/2024 2:48 PM EST) PTH 187.3(H) 18.5 - 88.0 pcg/mL [facility] 11/03/2024 2:48 PM EST 11/03/2024 6:23 PM EST Result [facility] us Solo Tejada MD LAB BLOOD ORDERABLES Final Resu lt Performing Organization Address [facility] de Phone Number [facility] [address] [place] [address] * (ABNORMAL) Creatinine, serum (11/03/2024 2:48 PM EST) Creatinine Serum 2.94(H) 0.70 - 1.30 mg/dL [facility] eGFR 22(L) >=60 mL/min/1. 73m2 [facility] Comment:Calculation based on the?Chronic Kidney Disease Epidemiology Collaboration (CKD-EPI) equation refit?without adjustment for race. 11/03/2024 2:48 PM EST 11/03/2024 6:23 PM EST us Solo Tejada MD LAB BLOOD ORDERABLES Final Resu lt Performing Organization Address [facility] Co de Phone Number [facility] [address] [place] [address] * Calcium (11/03/2024 2:48 PM EST) Calcium 10.2 8.5 - 10.5 mg/dL [facility] 11/03/2024 2:48 PM EST 11/03/2024 6:23 PM EST Solo Tejada MD LAB BLOOD ORDERABLES Final Resu lt Performing Organization Address [facility] Co de Phone Number [facility] [address] [place] [address] * Electrolyte panel (11/03/2024 2:48 PM EST) Sodium 134 133 - 145 mmol/L [facility] Potassium 4.4 3.5 - 5.5 mmol/L [facility] Comment:Hemolysis present Chloride 102 96 - 110 mmol/L [facility] Bicarbonate (CO2) 26 21 - 32 mmol/L [facility] Anion Gap 6 3 - 11 [facility] 11/03/2024 2:48 PM EST 11/03/2024 6:23 PM EST Solo Tejada MD LAB BLOOD ORDERABLES Final Resu lt Performing Organization Address [facility] Co de Phone Number [facility] [address] [place] [address] from Last 3 Months Insurance [facility] ([id number]) [facility] ([id number])
--- OUTSIDE RECORDS SUMMARY | 2025-01-22 13:34 | XMS_ITS ---
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 disease, with heart failure ([facility] V24, [facility] V28) 11/27/2024 Acute on chronic diastolic c ongestive heart failure ([facility] V24, [facility] V28) 11/27/2024 Chronic kidney disease, stag e IV (severe) ([facility] V24, [facility] V28) 11/27/2024 Anemia of chronic kidney failure 11/27/2024 Other toxic encephalopathy 11/27/2024 Acute kidney failure, unspecified ([facility] V24) 11/27/2024 Hyperkalemia 11/27/2024 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 Benign prostatic hyperplasia with lower urinary tract symptoms 11/27/2024 Other obstructive and reflux uropathy 11/27/2024 Other specified anxiety disorders 11/27/2024 Tachycardia, unspecified 11/27/2024 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 systemic 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 11/27 Dependence [...] hypoxia and hypercapnia (CMS/HCC V24, CMS/HCC V28) 02/04/2024 Hematuria 02/04/2024 CAD (coronary artery [...] heart failure with p reserved ejection fraction (CMS/HCC V24, CMS/HCC V28) 04/29/2023 Overview (07/14/2024): - During my [...] below under bradycardia assessment Thoracic aortic aneurysm ([facility] V24) Overview (07/14/2024): - Echocardiogram in March [...] any final decisions Secondary pulmonary arterial hypertension (CMS/HCC V24, CMS/HCC V28) 07/09/2022 Obstructive sleep apnea (adult) (pediatric) 06/07 Overview (07/14/2024): Followed by Dr. Schroeder Pulmonary nodules 03/25/2020 Tobacco use disorder 08/22/2017 Pancreatic lesion 03/21/2017 Emphysema, unspecified ([facility] V24, [facility] V28 ) 09/24/2014 CKD (chronic kidney disease) stage 3, GFR 30-59 ml/min ([facility] V24, [facility] V28) 04/12/2014 Overview (07/14/2024): Need to multiply by 1.21. 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 Continue monotherapy with amlodipine 10 mg daily. Current Oncology Plans No current plan information found. Past Plans No past plan information found. Radiation Treatments * No radiation treatments are documented for this patient in [facility]. Treatments may have been administered in another system. Lifetime Dose Tracking * Chemical Lifetime Dose Automatic Entry Manual Entr y Radiation (DLP) 186.38 mGy-cm 186.38 mGy-cm 0 mGy-cm CTDIvol 4.83 mGy 4.83 mGy 0 mGy
== END 2025-01-22 13:45 | disposition home or self-care (01) ==
LOC: HO.HUSH 13:01
PROVIDERS: PCP Internal Medicine; Visit Provider Urology
DX: N39.0 Urinary tract infection, site not specified (principal); N30.40 Irradiation cystitis without hematuria; N32.89 Other specified disorders of bladder
CPT/HCPCS: 52000; 99213; G2211

== ENCOUNTER → 2025-01-22 13:00 | Outpatient (BNVA) | payer OTHER, SELFPAY | PROVIDERS: PCP Internal Medicine; Visit Provider Urology | DX: N32.89 Other specified disorders of bladder (principal); N30.40 Irradiation cystitis without hematuria | CPT/HCPCS: 52000; 81003; 99212 ==